=== PATIENT | female | born 1985 | race Caucasian/White ===

== ENCOUNTER 2019-08-11 08:41 | Outpatient (RCR) | payer OTHER, SELFPAY ==
[2019-08-11 10:18] LABS: Hemoglobin 11.8 g/dL (12.0-15.0)
[2019-08-11 10:34] LABS: Glucose 1 Hour PP 50gm Dose 112 mg/dL
[2019-08-11 11:17] LABS: HIV 1/2 Ab P24 Ag Result Negative (Negative)
[2019-08-11] MEDS: RHO(D) IMMUNE GLOBULIN 300 MCG SYRINGE IM (16:51)
[2019-08-12 07:29] LABS: Rapid Plasma Reagin Non-Reactive (NonReactive)
== END 2019-11-09 23:59 | disposition home or self-care (01) ==
LOC: ANHLAB 08:41
PROVIDERS: Visit Provider Advanced Practice Midwife
DX: Z36.89 Encounter for other specified antenatal screening (principal); Z29.13 Encounter for prophylactic Rho(D) immune globulin; O36.0990 Maternal care for other rhesus isoimmunization, unspecified trimester, not applicable or unspecified; Z3A.00 Weeks of gestation of pregnancy not specified
CPT/HCPCS: 36415; 82947; 85014; 85018; 86592; 86703; 86850; 90384; 96372; G0432; J2790

== ENCOUNTER 2019-09-15 15:20 | Outpatient (RCR) | payer OTHER, SELFPAY ==
[2019-09-15 16:14] VITALS: BP 122/75; PULSE 95
== END 2019-10-20 13:19 | disposition home or self-care (01) ==
LOC: ANHOBOP 15:20
PROVIDERS: Visit Provider Obstetrics & Gynecology
DX: O99.89 Other specified diseases and conditions complicating pregnancy, childbirth and the puerperium (principal); Z87.51 Personal history of pre-term labor; Z3A.33 33 weeks gestation of pregnancy
CPT/HCPCS: 59025

== ENCOUNTER 2019-09-15 15:37 | Outpatient (CLI) | payer OTHER, SELFPAY ==
[2019-09-15] MEDS: BETAMETHASONE SOD PHOS/ACETATE 30 MG/5 ML VIAL 12 MG IM (16:12)
== END 2019-09-15 15:38 | disposition home or self-care (01) ==
PROVIDERS: Visit Provider Obstetrics & Gynecology
DX: Z34.90 Encounter for supervision of normal pregnancy, unspecified, unspecified trimester (principal); Z3A.00 Weeks of gestation of pregnancy not specified
CPT/HCPCS: 96372; J0702

== ENCOUNTER 2019-10-10 09:48 | Outpatient (CLI) | payer OTHER, SELFPAY ==
[2019-10-10 10:11] VITALS: BP 125/90; PULSE 81
[2019-10-10 10:28] LABS: Basophils Percent Auto 0.2 % (0.2-1.2); Eosinophils Percent Auto 0.2 % (0-4.4); Hemoglobin 11.8 g/dL (12.0-15.0); Immature Granulocyte Absolute 0.22 K/mm3 (0.00-0.031); Immature Granulocyte Percent A 1.8 % (0-0.5); Lymphocytes Absolute Auto 1.51 K/mm3 (0.9-3.2); Mean Corpuscular HGB Conc 34.7 g/dl (32-36); Mean Corpuscular Hemoglobin 30.2 pg (26-34); Mean Platelet Volume 9.4 fl (7.4-10.4); Monocytes Absolute Auto 0.7 K/mm3 (0.1-0.6); Monocytes Percent Auto 5.7 % (2.6-8.5); Neutrophils Absolute Auto 10.1 K/mm3 (1.3-6.7); Neutrophils Percent Auto 80.1 % (45.5-73.1); Platelet Count Result 154 k/mm3 (150-375); Red Blood Count 3.91 M/mm3 (4.2-5.4); Red Cell Distribution Width 12.9 % (11.5-14.5); White Blood Count 12.6 K/mm3 (4.5-10.0)
[2019-10-10 10:31] VITALS: BP 124/84; PULSE 81
[2019-10-10 10:35] LABS: Add Urine Microscopic? YES; Appearance Urine Clear (Clear); Bacteria Urine 1+ /hpf; Bilirubin Urine Negative (Negative); Blood Urine Negative (Negative); Color Urine Yellow (Yellow); Glucose Urine UA Negative (Negative); Ketones Urine Negative (Negative); Leukocyte Esterase Ur 1+ LEU/UL (NEGATIVE); Mucus Urine Rare /lpf; Nitrate Urine Negative (Negative); Protein Urine Negative (Negative); RBC Urine 0-2 /hpf (0-2); Squamous Epithelial Cell Urine Occasional /hpf (Few); Urobilinogen Urine Negative mg/dL (<2.0); WBC Urine 0-3 /hpf (0-3)
[2019-10-10 10:41] LABS: Creatinine Urine 61.1 mg/dL; Total Protein Urine Random 14 mg/dL
[2019-10-10 10:43] LABS: Alanine Aminotransferase 22 U/L (4-35); Albumin Level 3.6 g/dL (3.5-5.1); Alkaline Phosphatase 121 U/L (38-126); Aspartate Amino Transferase 24 U/L (14-36); Bilirubin,Total 0.3 mg/dL (0.2-1.3); Blood Urea Nitrogen 6 mg/dL (7-17); Calcium 9.3 mg/dL (8.4-10.2); Carbon Dioxide 23 mmol/L (22-30); Chloride 104 mmol/L (98-107); Estimated Glomerular Filt Rate > 60; Glucose 93 mg/dL (65-105); Potassium 3.6 mmol/L (3.4-5.0); Sodium 137 mmol/L (137-145); Uric Acid 3.3 mg/dL (2.5-7.5)
[2019-10-10 10:46] VITALS: BP 124/85; PULSE 86
[2019-10-10 11:00] VITALS: BP 120/77; PULSE 79
[2019-10-10 11:01] VITALS: BP 120/77; PULSE 79
== END 2019-10-10 11:36 | disposition home or self-care (01) ==
LOC: ANHOBOP 09:53 → ANHOBPP 09:54
PROVIDERS: Advanced Practice Midwife; Visit Provider Obstetrics & Gynecology
DX: O13.9 Gestational [pregnancy-induced] hypertension without significant proteinuria, unspecified trimester (principal)
CPT/HCPCS: 36415; 59025; 80053; 81001; 82570; 84156; 84550; 85025; 87086; 87088; 99199

== ENCOUNTER 2019-10-11 12:45 | Outpatient (CLI) | payer OTHER, SELFPAY ==
[2019-10-11 13:48] VITALS: BMI 33.0
[2019-10-11 15:33] LABS: Total Volume 24 Hour Urine 2700 ml
[2019-10-11 15:35] LABS: Specific Gravity Ur 1.007
[2019-10-11 18:07] LABS: Total Protein Urine 24 Hr 203 MG/DAY (28-141); Total Protein Urine Random 7.5 mg/dL (0.0-11.9)
== END 2019-10-11 12:46 | disposition home or self-care (01) ==
LOC: ANHOBOP 12:49
PROVIDERS: Visit Provider Advanced Practice Midwife
DX: R03.0 Elevated blood-pressure reading, without diagnosis of hypertension (principal)
CPT/HCPCS: 81050; 84156

== ENCOUNTER 2019-10-19 09:25 | Inpatient (IN) | payer OTHER, SELFPAY ==
[2019-10-19] VITALS (83 sets, daily range): BP systolic 103–150; BP diastolic 46–111; PULSE 82–122; RESP 18–20; TEMP 36.5–37.2; O2SAT 88–100; BMI 33.0
--- NOTE | ~2019-10-19 | US_ITS ---
EXAMINATION: US pelvic complete DATE: 10/20/2019 09:00 INDICATION: Retained products of conception. TECHNIQUE: Multiple transabdominal sonographic images of the pelvis were obtained. COMPARISON: None. FINDINGS: The uterus measures 15.8 x 13.0 x 6.2 cm. There is no free fluid in the pelvis. The endometrial compl ex measures 20 mm in thickness in the lower uterine segment without internal vascularity. The ovaries are not visualized. IMPRESSION: 1. Thickened endometrial complex suspicious for retained products of conception. 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 Thickened endometrial complex suspicious for retained products of conception .
--- NOTE | 2019-10-19 10:19 | LDADM ---
This patient, Cori Royal, was admitted to Labor/Delivery/Recovery 106 on 10/19/19 at 09:25 with SROM at 0015 this am. Plans for labor, pain management and were discussed with patient. Patient/family oriented to hospital policies and general routines including ID bracelet, bed and alarms, visiting hours, pain management, procedures, bathroom and other care routines, personal items, smoking policy, room service/diet and guest tray routines, infant security routines, and visiting hours. Patient/Family are encouraged to report perceived risks to care and to ask questions if they do not understand what they are told or what they should do. See OBIX for further documentation.
[2019-10-19 10:31] LABS: Basophils Percent Auto 0.3 % (0.2-1.2); Eosinophils Percent Auto 0.2 % (0-4.4); Hematocrit 32.8 % (37.0-47.0); Hemoglobin 11.6 g/dL (12.0-15.0); Immature Granulocyte Absolute 0.24 K/mm3 (0.00-0.031); Immature Granulocyte Percent A 1.6 % (0-0.5); Lymphocytes Absolute Auto 1.68 K/mm3 (0.9-3.2); Lymphocytes Percent Auto 11.4 % (18.3-44.2); Mean Corpuscular HGB Conc 35.4 g/dl (32-36); Mean Corpuscular Hemoglobin 30.6 pg (26-34); Mean Corpuscular Volume 86.5 fl (80-100); Mean Platelet Volume 9.7 fl (7.4-10.4); Monocytes Absolute Auto 0.8 K/mm3 (0.1-0.6); Monocytes Percent Auto 5.3 % (2.6-8.5); Neutrophils Absolute Auto 11.9 K/mm3 (1.3-6.7); Neutrophils Percent Auto 81.2 % (45.5-73.1); Platelet Count Result 158 k/mm3 (150-375); Red Blood Count 3.79 M/mm3 (4.2-5.4); Red Cell Distribution Width 13.2 % (11.5-14.5); White Blood Count 14.7 K/mm3 (4.5-10.0)
[2019-10-19 10:44] LABS: Alanine Aminotransferase 21 U/L (4-35); Albumin Level 3.6 g/dL (3.5-5.1); Alkaline Phosphatase 145 U/L (38-126); Aspartate Amino Transferase 25 U/L (14-36); Bilirubin,Total 0.4 mg/dL (0.2-1.3); Blood Urea Nitrogen 7 mg/dL (7-17); Calcium 8.8 mg/dL (8.4-10.2); Carbon Dioxide 20 mmol/L (22-30); Chloride 104 mmol/L (98-107); Estimated Glomerular Filt Rate > 60; Glucose 86 mg/dL (65-105); Potassium 3.6 mmol/L (3.4-5.0); Sodium 135 mmol/L (137-145); Uric Acid 3.5 mg/dL (2.5-7.5)
[2019-10-19] MEDS: LACTATED RINGERS 1,000 ML 125 ML IV CONT ×2 (10:51→17:31)
--- NOTE | 2019-10-19 13:20 | WPDANESEPP ---
Anes - Eval Pre Procedure Procedure: Labor Epidural Date/Time: 10/19/19 13:20 Pre Op Diagnosis: leaking Patient Data Age: 34 Gender: F Height: 1.57 m Weight: 82 kg Last Vital Signs Temp 37.1 C 10/19/19 13:03 Pulse 95 10/19/19 13:02 Resp 18 10/19/19 09:45 BP 128/87 10/19/19 13:02 Allergies Allergy/AdvReac Type Severity Reaction Status Date / Time milk AdvReac Diarrhea Verified 10/09/19 15:26 Home Medications Medication Instructions Recorded Confirmed Type PNV cmb#95-ferrous fumarate-FA 1 tablet PO DAILY 10/09/19 10/19/19 History [] Vitamin D3 1 cap PO DAILY 10/19/19 10/19/19 History Laboratory Tests 10/19/19 10/19/19 10/19/19 10:23 10:23 10:23 WBC 14.7 K/mm3 H K/mm3 (4.5-10.0) RBC 3.79 M/mm3 L M/mm3 (4.2-5.4) Hgb 11.6 g/dL L g/dL (12.0-15.0) Hct 32.8 % L % (37.0-47.0) MCV 86.5 fl fl (80-100) MCH 30.6 pg pg (26-34) MCHC 35.4 g/dl g/dl (32-36) RDW 13.2 % % (11.5-14.5) Plt Count 158 k/mm3 k/mm3 (150-375) MPV 9.7 fl fl (7.4-10.4) Immature Gran % (Auto) 1.6 % H % (0-0.5) Neut % (Auto) 81.2 % H % (45.5-73.1) Lymph % (Auto) 11.4 % L % (18.3-44.2) [place] % (Auto) 5.3 % % (2.6-8.5) Eos % (Auto) 0.2 % % (0-4.4) Baso % (Auto) 0.3 % % (0.2-1.2) Lymph # (Auto) 1.68 K/mm3 K/mm3 (0.9-3.2) [place] # (Auto) 0.8 K/mm3 H K/mm3 (0.1-0.6) Eos # (Auto) 0.0 K/mm3 K/mm3 (0-0.3) Baso # (Auto) 0.0 K/mm3 K/mm3 (0.0-0.1) Abs Immat Gran (auto) 0.24 K/mm3 H K/mm3 (0.00-0.031) Absolute Neuts (auto) 11.9 K/mm3 H K/mm3 (1.3-6.7) Absolute Nucleated RBC 0.0 K/mm3 K/mm3 (0.0-0.012) Nucleated RBC % 0.0 % % (0.0-0.2) Sodium Potassium Chloride Carbon Dioxide BUN Creatinine Estim Creat Clear Calc Estimated GFR Glucose Uric Acid Calcium Total Bilirubin AST ALT Alkaline Phosphatase Total Protein Albumin RPR Pending Blood Type O Negative Antibody Screen Negative 10/19/19 10:23 WBC RBC Hgb Hct MCV MCH MCHC RDW Plt Count MPV Immature Gran % (Auto) Neut % (Auto) Lymph % (Auto) [place] % (Auto) Eos % (Auto) Baso % (Auto) Lymph # (Auto) [place] # (Auto) Eos # (Auto) Baso # (Auto) Abs Immat Gran (auto) Absolute Neuts (auto) Absolute Nucleated RBC Nucleated RBC % Sodium 135 mmol/L L mmol/L (137-145) Potassium 3.6 mmol/L mmol/L (3.4-5.0) Chloride 104 mmol/L mmol/L (98-107) Carbon Dioxide 20 mmol/L L mmol/L (22-30) BUN 7 mg/dL mg/dL (7-17) Creatinine 0.60 mg/dL L mg/dL (0.7-1.0) Estim Creat Clear Calc Not Reportable Estimated GFR > 60 (59 - ) Glucose 86 mg/dL mg/dL (65-105) Uric Acid 3.5 mg/dL mg/dL (2.5-7.5) Calcium 8.8 mg/dL mg/dL (8.4-10.2) Total Bilirubin 0.4 mg/dL mg/dL (0.2-1.3) AST 25 U/L U/L (14-36) ALT 21 U/L U/L (4-35) Alkaline Phosphatase 145 U/L H U/L (38-126) Total Protein 7.0 g/dL g/dL (6.3-8.2) Albumin 3.6 g/dL g/dL (3.5-5.1) RPR Blood Type Antibody Screen Patient hx anesthesia problems: none Family hx anesthesia problems: none PMFSH Family History Family History Father Pancreatic cancer Sibling Cervical cancer Mother Hypertension Social History Social History Smoking status: Never smoker
[2019-10-19] MEDS: AMPICILLIN 2 GM/NS 100 ML 2 GM/100 ML BAG IVPB (18:14)
[2019-10-19] MEDS: METHYLERGONOVINE MALEATE 0.2 MG/ML VIAL (23:28)
--- NOTE | 2019-10-19 23:36 | PM.OBPRVD ---
OB - Delivery Note Procedure Delivery date: 10/19/19 Procedure: Intrapartal events: Prolonged Labor > 20 hours Induction method: none Delivery augmentation: pitocin Delivery monitor: external FHT and internal FHT Route of delivery: Episiotomy description: Midline (second degree) Delivery repair: vicryl (2-0) Specimen: Yes Estimated blood loss (mL): 385 Anesthesia type: Local Disposition: floor Baby Date of : 10/19/19 Time of : 23:06 Weeks of gestation at delivery: 37 Infant gender: Female Weight (pounds): 6 Weight (ounces): 14 presentation: vertex position: Left Occiput Anterior Placenta delivery description: Manual Removal and Uterine Exploration score one minute: 8 score five minutes: 9 Narrative: Cord avulsed with very gentle traction. Placenta manually removed in one large piece but torn. Manual exploration did not reveal any pieces of placenta inside uterus. bedside ultrasound showed homogenous endometrium about 1 cm thick
--- NOTE | 2019-10-19 23:44 | WPDOBADMIT ---
Obstetrics - Admit Note Admission Note: record reviewed. No pertinent additions to the history and/or any subsequent changes in the physical findings that are not consistent with the expected course of the were found. Additions to the history and/or subsequent changes in the physical findings follow. G1 at 37+6 came in with c/o leaking fluid since 14 this morning was found to have SROM. She was admitted for augmentation of labor. GBS negative
[2019-10-20] VITALS (17 sets, daily range): BP systolic 99–138; BP diastolic 72–88; PULSE 84–115; RESP 16–25; TEMP 36.1–37.7; O2SAT 97–100
[2019-10-20] MEDS: ceFAZolin 2 GM/D5W 50 ML 2 GM/50 ML BAG IVPB (00:19)
--- NOTE | 2019-10-20 02:38 | OBPPTRN ---
Patient transferred to post room #282 via wheelchair. Support person present. Oriented to unit, room, information board, rooming in, admission packet and security measures. Patient verbalizes understanding.
[2019-10-20 05:50] LABS: Hematocrit 29.7 % (37.0-47.0); Hemoglobin 10.5 g/dL (12.0-15.0)
--- NOTE | 2019-10-20 07:31 | P.PNOB_ITS ---
OB - PN: Subj Subjective Date/time seen: 10/20/19 07:31 Patient comments: no complaints, pain well controlled and other (Lochia similar to menses) [place] baby status: doing well OB - PN: Obj Data Labs CBC & Chem 7: 10/20/19 05:06 10/19/19 10:23 Labs: Laboratory Results - last 24 hr 10/19/19 10/19/19 10/19/19 10:23 10:23 10:23 WBC 14.7 H RBC 3.79 L Hgb 11.6 L Hct 32.8 L MCV 86.5 MCH 30.6 MCHC 35.4 RDW 13.2 Plt Count 158 MPV 9.7 Immature Gran % (Auto) 1.6 H Neut % (Auto) 81.2 H Lymph % (Auto) 11.4 L [place] % (Auto) 5.3 Eos % (Auto) 0.2 Baso % (Auto) 0.3 Lymph # (Auto) 1.68 [place] # (Auto) 0.8 H Eos # (Auto) 0.0 Baso # (Auto) 0.0 Abs Immat Gran (auto) 0.24 H Absolute Neuts (auto) 11.9 H Absolute Nucleated RBC 0.0 Nucleated RBC % 0.0 Sodium 135 L Potassium 3.6 Chloride 104 Carbon Dioxide 20 L BUN 7 Creatinine 0.60 L Estim Creat Clear Calc Not Reportable Estimated GFR > 60 Glucose 86 Uric Acid 3.5 Calcium 8.8 Total Bilirubin 0.4 AST 25 ALT 21 Alkaline Phosphatase 145 H Total Protein 7.0 Albumin 3.6 Blood Type O Negative Antibody Screen Negative 10/20/19 05:06 WBC RBC Hgb 10.5 L Hct 29.7 L MCV MCH MCHC RDW Plt Count MPV Immature Gran % (Auto) Neut % (Auto) Lymph % (Auto) [place] % (Auto) Eos % (Auto) Baso % (Auto) Lymph # (Auto) [place] # (Auto) Eos # (Auto) Baso # (Auto) Abs Immat Gran (auto) Absolute Neuts (auto) Absolute Nucleated RBC Nucleated RBC % Sodium Potassium Chloride Carbon Dioxide BUN Creatinine Estim Creat Clear Calc Estimated GFR Glucose Uric Acid Calcium Total Bilirubin AST ALT Alkaline Phosphatase Total Protein Albumin Blood Type Antibody Screen OB - PN A/P Plan day: 1 (s/p vaginal delivery, doing well) Plan: routine care Comments: Manual removal of placenta without epidural, so exploration afterwards was not thorough due to patient intolerance. Lochia similar to menses. Check ultrasound to rule out retained products of conception Time Spent With Patient Time: Total time spent is greater than 50% in coordination of care (as documented) at patient's floor/unit and/or counseling patient: Exam Const: General: no acute distress GI: Inspection: other (Fundus firm and nontender at umbilicus) GI Palp: Yes Soft to palpation and No Tenderness to palpation present (GI) Extrem: General: no edema
[2019-10-20] MEDS: MULTIVIT/MIN/PREN/FOL AC/IRON TABLET 1 TAB PO (08:42)
[2019-10-20] MEDS: DOCUSATE SODIUM 100 MG CAPSULE PO (08:42)
--- NOTE | 2019-10-20 09:19 | PC.NURSE ---
0805 pt to Radiology per wheelchair for pelvic ultrasound. 0830 Pt returned to her room per wheelchair, ultrasound completed.
[2019-10-20 10:49] LABS: Rapid Plasma Reagin Non-Reactive (NonReactive)
--- NOTE | 2019-10-20 13:04 | PC.NURSE ---
2168 Pt made aware of 's order for her to go for a D&C this afternoon; made NPO. Pre-op instructions given. Per Viola in Pre-op, consent to be signed in Pre-op.
--- NOTE | 2019-10-20 13:08 | PC.NURSE ---
1307 To Surgery per stretcher.
[2019-10-20] MEDS: LACTATED RINGERS 1,000 ML 30 ML IV CONT ×2 (13:30→15:16)
--- NOTE | 2019-10-20 13:38 | WPDANESEPPF ---
Anes - Initial Pre Proc Eval Procedure: Operation Date: 10/20/19 14:30 Proposed Procedures p Suction D&C - Terri Gallardo MD Date/Time: 10/20/19 13:38 Surgeon: Terri Gallardo MD Pre Op Diagnosis: leaking Patient Data Age: 34 Gender: F Height: 1.57 m Weight: 82 kg Last Vital Signs Temp 36.8 C 10/20/19 12:45 Pulse 105 H 10/20/19 12:45 Resp 16 10/20/19 12:45 BP 124/85 10/20/19 12:45 Pulse Ox 99 10/20/19 12:45 Allergies Allergy/AdvReac Type Severity Reaction Status Date / Time milk AdvReac Diarrhea Verified 10/09/19 15:26 Home Medications Medication Instructions Recorded Confirmed Type PNV cmb#95-ferrous fumarate-FA 1 tablet PO DAILY 10/09/19 10/19/19 History [] Vitamin D3 1 cap PO DAILY 10/19/19 10/19/19 History Laboratory Tests 10/19/19 10/20/19 10:23 05:06 Hgb 10.5 g/dL L g/dL (12.0-15.0) Hct 29.7 % L % (37.0-47.0) RPR Non-reactive (NonReactive) Patient hx anesthesia problems: none Family hx anesthesia problems: none PMFSH Family History Family History Father Pancreatic cancer Sibling Cervical cancer Mother Hypertension Social History Social History Smoking status: Never smoker Second hand tobacco smoke exposure: No Substance use: never Gender identity (if verbalized by the patient): Female Spiritual care concerns: No Anes - Eval Final PreProcedure Day of Procedure 10/20/19 13:38 Patient weight: obese Heart: regular rate and rhythm Lungs: clear to auscultation and normal air movement Airway: Mallampati scale class II Neurological: alert and oriented Last oral intake: 4 hours (biscuits and gravy 0930) ASA classification: II Emergent: yes Anesthetic plan: proceed Anesthesia type and monitoring: general ETT and standard monitoring Informed Consent: The patient's anesthetic plan and its attendant risks and benefits were discussed with the patient/family/POA. Questions were solicited and answers provided to the satisfaction of the patient/family/POA.
[2019-10-20] MEDS: FAMOTIDINE 20 MG/2 ML VIAL IV PUSH (13:43)
--- NOTE | 2019-10-20 14:13 | PM.IMHP ---
H&P: HPI History of Present Illness Chief complaint: leaking Narrative: Cori Royal is a 34 year old female who had 10/19/2019 complicated by manual removal of placenta. Ultrasound this am shows retained placenta so she is recommended to proceed with D&C. Lochia similar to menses Review of Systems Review of Systems: All systems reviewed & are unremarkable except as noted in HPI and below PMFSH Family History Family History Father Pancreatic cancer Sibling Cervical cancer Mother Hypertension Social History Social History Smoking status: Never smoker Second hand tobacco smoke exposure: No Substance use: never Gender identity (if verbalized by the patient): Female Spiritual care concerns: No Meds Home Medications and Allergies Home Medications Medication Instructions Recorded Confirmed Type PNV cmb#95-ferrous fumarate-FA 1 tablet PO DAILY 10/09/19 10/19/19 History [] Vitamin D3 1 cap PO DAILY 10/19/19 10/19/19 History Allergies Allergy/AdvReac Type Severity Reaction Status Date / Time milk AdvReac Diarrhea Verified 10/09/19 15:26 Vital Signs Vital Signs - 24 hr 10/19/19 14:31 10/19/19 15:00 10/19/19 15:01 Temperature 37.1 C Pulse Rate 86 87 Respiratory Rate Blood Pressure 114/67 117/74 Pulse Oximetry 10/19/19 15:31 10/19/19 16:01 10/19/19 16:02 Temperature 36.5 C Pulse Rate 93 93 Respiratory Rate Blood Pressure 126/79 123/76 Pulse Oximetry 10/19/19 16:17 10/19/19 16:31 10/19/19 16:50 Temperature Pulse Rate 98 102 H 95 Respiratory Rate Blood Pressure 124/81 120/85 121/90 Pulse Oximetry 10/19/19 17:01 10/19/19 17:16 10/19/19 17:31 Temperature 37.2 C Pulse Rate 102 H 92 87 Respiratory Rate 20 Blood Pressure 136/95 H 124/89 118/74 Pulse Oximetry 10/19/19 17:34 10/19/19 17:39 10/19/19 17:44 Temperature Pulse Rate Respiratory Rate Blood Pressure Pulse Oximetry 93 99 99 10/19/19 17:46 10/19/19 17:49 10/19/19 17:54 Temperature Pulse Rate 82 Respiratory Rate Blood Pressure 117/58 L Pulse Oximetry 99 97 10/19/19 17:59 10/19/19 18:00 10/19/19 18:01 Temperature 37.2 C Pulse Rate 84 Respiratory Rate Blood Pressure 118/71 Pulse Oximetry 100 10/19/19 18:04 10/19/19 18:09 10/19/19 18:14 Temperature Pulse Rate Respiratory Rate Blood Pressure Pulse Oximetry 100 100 100 10/19/19 18:19 10/19/19 18:24 10/19/19 18:29 Temperature Pulse Rate Respiratory Rate Blood Pressure Pulse Oximetry 100 99 99 10/19/19 18:31 10/19/19 18:34 10/19/19 18:37 Temperature Pulse Rate 87 Respiratory Rate Blood Pressure 119/70 Pulse Oximetry 100 88 L 10/19/19 18:38 10/19/19 18:39 10/19/19 18:40 Temperature Pulse Rate Respiratory Rate Blood Pressure Pulse Oximetry 93 100 100 10/19/19 19:00 10/19/19 19:01 10/19/19 19:31 Temperature 36.9 C Pulse Rate 94 87 Respiratory Rate Blood Pressure 120/68 134/80 Pulse Oximetry 10/19/19 19:51 10/19/19 19:56 10/19/19 20:01 Temperature Pulse Rate Respiratory Rate Blood Pressure Pulse Oximetry 100 100 100 10/19/19 20:06 10/19/19 20:11 10/19/19 20:15 Temperature Pulse Rate 91 Respiratory Rate Blood Pressure 103/46 L Pulse Oximetry 100 100 10/19/19 20:16 10/19/19 20:21 10/19/19 20:26 Temperature Pulse Rate Respiratory Rate Blood Pressure Pulse Oximetry 100 100 100 10/19/19 20:28 10/19/19 20:31 10/19/19 20:36 Temperature Pulse Rate 95 95 Respiratory Rate Blood Pressure 110/81 119/80 Pulse Oximetry 100 99 10/19/19 20:41 10/19/19 20:46 10/19/19 20:51 Temperature Pulse Rate 94 Respiratory Rate Blood Pressure 129/77 Pulse Oximetry 98 99 99 10/19/19 20:56 10/19/19
--- NOTE | 2019-10-20 14:18 | WPDHPUPDATE1 ---
History and Physical Update Update Date/Time: 10/20/19 14:18 History and Physical has been reviewed, including an updated exam of the patient. There are NO changes in the patient's condition. Risks, benefits, and alternatives have been discussed and questions answered. Patient agrees to proceed with procedure.
--- NOTE | 2019-10-20 15:13 | PM.OP ---
Procedure Note - Brief Procedure Note - Brief Date of procedure: 10/20/19 Pre-op diagnosis: leaking retained placenta Post-op diagnosis: other (stretching of episiotomy site sutures) Procedure performed: suction D&C, revision of episiotomy repair Anesthesia: MAC Surgeon: Terri Gallardo MD Estimated blood loss (mL): 600 Drains: No Packing: No Pathology: yes Complications: No immediate complications Condition: stable Disposition: PACU Findings: Moderate amounts POCs. Sutures stretched and episiotomy site slightly, now revised
--- NOTE | 2019-10-20 15:59 | OP_ITS ---
DATE OF PROCEDURE: 10/20/2019 PREOPERATIVE DIAGNOSIS: Retained placenta. POSTOPERATIVE DIAGNOSIS: Retained placenta and stretching of the episiotomy site sutures. PROCEDURE PERFORMED: Suction dilation and curettage in revision of episiotomy site repair. ANESTHESIA: Conscious sedation. ESTIMATED BLOOD LOSS: 600 mL. COMPLICATIONS: None. FINDINGS: Moderate amounts of products of conception and stretching and slight separation of episiotomy site. INDICATIONS: A 34-year-old G1, P1, who had a vaginal delivery at around 11:00 p.m. on October 18. She had manual removal of the placenta, which was thought to be removed in its entirety, but an ultrasound was ordered for this morning, which did show retained placental tissue. She was recommended to proceed with D and C DESCRIPTION OF PROCEDURE: For the procedure, she was taken to the operating room, where she was sedated and placed in the dorsal lithotomy position. A speculum was placed in the vagina and the anterior lip of the cervix was grasped with an Allis clamp. The cervix easily dilated up to a #14 Hegar dilator. A #14 curved suction curette was placed and the uterine contents were evacuated with moderate amounts of products of conception noted. She did have an increased amount of bleeding, which did respond very quickly to Pitocin and bleeding was minimal at the end of the case and when the speculum was removed. It was noted that her episiotomy site was slightly with the sutures stretched, so the existing sutures were cut and removed and the episiotomy site was repaired in standard fashion with 2-0 Vicryl in a running fashion. She tolerated the procedure well. Sponge, lap, needle, and instrument counts were correct x2 and she was taken to the recovery room in stable condition. D I MT: Abdi
--- NOTE | 2019-10-20 19:06 | PC.NURSE ---
1555 pt returned from Recovery room per stretcher. VSS and assessment WNL.
--- NOTE | 2019-10-20 19:31 | PC.NURSE ---
1600 IV 1000cc LR hung; pt able to start po fluids quickly on return to her room. 1845 IV saline locked; pt had 327cc infused; pt eating and tolerated po fluids.
[2019-10-21 00:30] VITALS: BP 117/73; PULSE 85; RESP 16; TEMP 36.8; O2SAT 99
[2019-10-21 05:39] LABS: Hematocrit 23.2 % (37.0-47.0)
--- NOTE | 2019-10-21 07:30 | PC.NURSE ---
PT introductions made and plan of care discussed per post , pain management, breast/bottle feeding, daily care activities and pending discharge to home. PT verbalized understanding of such care.
[2019-10-21 07:35] VITALS: BP 99/68; PULSE 97; RESP 16; TEMP 36.6; O2SAT 100
--- NOTE | 2019-10-21 07:40 | PM.OBPNVD ---
OB - PN: Subj Subjective Date/time seen: 10/21/19 07:40 Patient comments: no complaints, pain well controlled and other (Lochia similar to menses) [place] baby status: doing well Narrative: No CP, SOB, dizziness. 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 Thickened endometrial complex suspicious for retained products of conception. OB - PN A/P Plan day: 2 (s/p vaginal delivery, doing well) Plan: routine care, discharge home and other (Follow up in office in 1 week due to postop s/p D&C) Time Spent With Patient Time: Total time spent is greater than 50% in coordination of care (as documented) at patient's floor/unit and/or counseling patient: Time with patient: less than 15 minutes Review of Systems Review of Systems: All systems reviewed & are unremarkable except as noted in HPI and below Exam Const: General: no acute distress GI: Inspection: other (Fundus firm and nontender below umbilicus) GI Palp: Yes Soft to palpation and No Tenderness to palpation present (GI) Extrem: General: no edema
--- NOTE | 2019-10-21 07:42 | WPDANESPN ---
Anes - Prog Note Post-Op Date/Time: 10/21/19 07:42 Cardiovascular status: normal Respiratory status: normal Airway patency: baseline Mental status: baseline Post-Op hydration status: normal Vital Signs: Last Vital Signs Temp 36.8 C 10/21/19 00:30 Pulse 85 10/21/19 00:30 Resp 16 10/21/19 00:30 BP 117/73 10/21/19 00:30 Pulse Ox 99 10/21/19 00:30 Laboratory Tests 10/21/19 04:55 10/19/19 10:23 10/19/19 10/21/19 10:23 04:55 Hgb 8.0 L Hct 23.2 L RPR Non-reactive Post-procedural complaints: none Patient Feedback: Patient satisfied with anesthetic care.
--- NOTE | 2019-10-21 07:42 | PM.OBDSVD ---
DS: Diagnosis Admitting Diagnosis Admitting Diagnosis: Retained placenta without hemorrhage OB - DS: Summary OB Procedures : None OB Procedures Intrapartum: Spontaneous Vag Delivery, Uterine exploration and Retained placenta OB Procedures: : Curettage Peripartum Data Procedures: Procedures Operation Date: 10/20/19 14:30 Actual Procedures Side Surgeon p Suction D&C WITH REVISION OF EPISIOTOMY REPAIR Terri Gallardo MD Time Spent with Patient Time attestation: Total time spent providing and/or coordinating discharge services: DS: Data Data Completed and Pending Pending studies at discharge: Pending at discharge 10/20/19 02:36 Surgical [PTH] Routine 10/20/19 14:46 Surgical [PTH] Routine Labs on day of discharge: Labs from last 24 hours 10/21/19 10/19/19 04:55 10:23 Hgb 8.0 L Hct 23.2 L RPR Non-reactive Discharge Plan Discharge Attending physician on discharge: Terri Gallardo Discharging Clinician: Terri Gallardo Patient Disposition: Home, Self-Care Activity: may shower and pelvic rest Diet: regular Patient Instructions: Antibiotic Form Stand Alone Forms: General Discharge Information Follow-up/Referrals: Terri Gallardo MD [Physician] - 1 Week Discharge Medications: New ibuprofen 600 mg Tablet 600 mg PO Q6H PRN (Reason: Cramping) Qty: 60 RF: 0 Continued PNV cmb#95-ferrous fumarate-FA [] 28 mg iron- 800 mcg Tablet 1 tablet PO DAILY RF: 0 Vitamin D3 1 cap PO DAILY RF: 0 Date of admission: 10/19/19 09:25 Primary Care Provider: UNKNOWN,DOCTOR Admitting Provider: Terri Gallardo Attending physician on admission: Terri Gallardo
[2019-10-21 09:30] VITALS: PULSE 97; RESP 16; O2SAT 100
[2019-10-21] MEDS: DOCUSATE SODIUM 100 MG CAPSULE PO (10:10)
[2019-10-21] MEDS: POLYSACCHARIDE IRON COMPLEX 150 MG CAPSULE PO (10:10)
[2019-10-21] MEDS: MULTIVIT/MIN/PREN/FOL AC/IRON TABLET 1 TAB PO (10:10)
--- NOTE | 2019-10-21 13:30 | PC.NURSE ---
PT received discharge instructions per protocol and verbalized understanding of such care.
--- NOTE | 2019-10-21 14:02 | PC.NURSE ---
PT discharged to home ambulatory accompanied by spouse and to waiting car. Follow up appts confirmed
--- NOTE | 2019-10-21 14:50 | PC.NURSE ---
Addendum entered by Jadon Franz RN 10/21/19 14:51: change time to 1330 Original Note: Patient viewed the discharge video Mother & Baby Care, The First Two Weeks . Patient was given the opportunity and encouraged to ask questions. Patient verbalized understanding of information shared and has been given the mother/baby guide for home reference.
[2019-10-22 10:47] VITALS: BP 117/83; PULSE 91; RESP 20; TEMP 36.9
== END 2019-10-21 14:02 | disposition home or self-care (01) | DRG 798 ==
LOC: ANHLDR 09:56 → ANHOB2 10-20 02:21
PROVIDERS: Admitting Provider Obstetrics & Gynecology; Visit Provider Obstetrics & Gynecology
PROC: 10D17ZZ Extraction of Products of Conception, Retained, Via Natural or Artificial Opening (ICD-10-PCS; principal; 2019-10-20 14:30)
DX: O42.02 Full-term premature rupture of membranes, onset of labor within 24 hours of rupture (principal); Z37.0 Single live birth; Z3A.37 37 weeks gestation of pregnancy; O13.4 Gestational [pregnancy-induced] hypertension without significant proteinuria, complicating childbirth; O99.214 Obesity complicating childbirth; E66.9 Obesity, unspecified; O73.0 Retained placenta without hemorrhage
CPT/HCPCS: 36415; 76856; 80053; 84112; 84550; 85014; 85018; 85025; 86592; 86850; 86900; 86901; 88305; 88307; A9270; J0290; J0330; J0690; J1100; J2210; J2250; J2405; J2590; J2704; J3010; J7120

== ENCOUNTER 2019-10-31 11:14 | Outpatient (RCR) | payer OTHER, SELFPAY ==
--- NOTE | 2019-10-31 14:01 | PC.NURSE ---
IN 1010 OUT 1100 HISTORY: Pt. delivered at [facility] at 37 6/7weeks. Infant had no complications after delivery. Mother had complications after delivery, of retained placenta with a large EBL. is now 12 days old. Infant appears to be well cared for. has been seen by ICP as scheduled. last seen by ICP on 10/27/12. Mother reports: She has been using the nipple shield within the first few feedings and is unable to latch without. Mother was discharged with a feeding plan to supplement 20mls increasing as infant's needs increase after each feeding and then pump. Mother was up to 1 oz and is now at 2 oz after ICP visit for slow weight gain. Mother is pumping regularly and is pumping 5mls total each session. Mother wishes: To increase milk supply and not need to supplement after feedings. Currently at 6 wets per day and 1-2 yellow seedy stools per day. weight: 6#14 Last Weight: 6#6 Pre feeding weight: 3067 Post feeding weight: 3073 OBSERVATION: Mother is able to latch correctly using the nipple shield. Mother uses cross cradle positioning/alignment, holding breast and guided asymmetrical latch on. was able to latch correctly. Reviewed signs of a correct latch, effective nursing and suck swallow ratio. Infant nursed eagerly, with steady draws and frequent swallowing noted for 2-3 minutes. began to slow with less swallowing noted. Suggested breast compressions to assist with milk flow and keep nursing with long draws. responded well for a few minutes, then again, began to slow and fall asleep. Mother states this is a typical feeding. Infant weighed after 15 minutes at the breast of stimulating to keep awake and nursing. 5g increase noted in feeding. Discussed low milk supply may have been impacted by retained placenta and large blood loss after delivery. Reviewed milk supply may be delayed and may increase but may not increase to exclusive levels. Mother is very tearful, suggested to use all attempts to increase supply for the next few days and re-evaluate next Sunday for a possible change in feeding plan. Suggested mother put to each breast per feeding for 10 minutes for additional stimulation of nursing, then supplement as much as infant desires and pump 10-15 minutes. FOB will be home for the next few days to assist mother with plan. Assessed mother pumping and her Spectra 2, double electric pump. Mother's pump is working correctly and is pumping with the correct flange size. Suggested a minute of self expression on each breast after pumping if she feels she is able. PLAN: Mother will follow above feeding plan using techniques for deep latch, allowing to on both breasts each feeding. . Mother will call with further questions or concerns. Follow up phone call scheduled for Sunday.
== END 2020-01-29 23:59 | disposition home or self-care (01) ==
LOC: ANHOBOP 11:14
PROVIDERS: Visit Provider Pediatrics
DX: Z39.1 Encounter for care and examination of lactating mother (principal)
CPT/HCPCS: 99212; G0463

== ENCOUNTER 2020-09-24 15:25 | Outpatient (CLI) | payer BC, SELFPAY ==
--- NOTE | ~2020-09-24 | US_ITS ---
EXAMINATION: US OB <= 14 weeks fetus DATE: 09/24/2020 16:04 INDICATION: Gestational dating TECHNIQUE: Real-time transabdominal and transvaginal obstetric ultrasound. FINDINGS: Automated exposure control and iterative reconstruction technique were employed. The uterus measures 11.2 x 5.4 x 6.5 cm . There is an intrauterine gestational sac, with pole i dentified. The crown rump length measures 2.12 cm, which correlates with a estimated gestational age of 8 weeks 5 days. heart tones are identified measuring 171 BPM. There is a 4 cm corpus lute al cyst of the right ovary. Left ovary is unremarkable. IMPRESSION: 1. SL IUP with an EGA of 8 weeks, 5 days (EDC by current ultrasound of 05/01/2021). 2: Corpus luteal cyst of the right ovary measuring 4 cm. 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 [employer] IMPRESSION: 1. SL IUP with an EGA of 8 weeks, 5 days (EDC by current ultrasound of ). 2: Corpus luteal cyst of the right ovary measuring 4 cm.
== END 2020-09-24 15:26 | disposition home or self-care (01) ==
PROVIDERS: PCP Nurse Practitioner Family; Visit Provider Obstetrics & Gynecology
DX: Z78.9 Other specified health status (principal); Z3A.08 8 weeks gestation of pregnancy; O34.81 Maternal care for other abnormalities of pelvic organs, first trimester; N83.11 Corpus luteum cyst of right ovary
CPT/HCPCS: 76801

== ENCOUNTER 2021-02-04 10:37 | Outpatient (CLI) | payer BC, SELFPAY ==
[2021-02-04 11:59] LABS: Basophils Percent Auto 0.3 % (0.2-1.2); Eosinophils Percent Auto 0.4 % (0-4.4); Hematocrit 33.9 % (37.0-47.0); Hemoglobin 11.4 g/dL (12.0-15.0); Immature Granulocyte Absolute 0.15 K/mm3 (0.00-0.031); Immature Granulocyte Percent A 1.4 % (0-0.5); Lymphocytes Absolute Auto 1.05 K/mm3 (0.9-3.2); Lymphocytes Percent Auto 9.7 % (18.3-44.2); Mean Corpuscular HGB Conc 33.6 g/dl (32-36); Mean Corpuscular Hemoglobin 30.6 pg (26-34); Mean Corpuscular Volume 90.9 fl (80-100); Monocytes Absolute Auto 0.4 K/mm3 (0.1-0.6); Neutrophils Absolute Auto 9.2 K/mm3 (1.3-6.7); Neutrophils Percent Auto 84.2 % (45.5-73.1); Platelet Count Result 144 k/mm3 (150-375); Red Blood Count 3.73 M/mm3 (4.2-5.4); Red Cell Distribution Width 13.2 % (11.5-14.5); White Blood Count 10.9 K/mm3 (4.5-10.0)
[2021-02-04 12:08] LABS: Glucose 1 Hour PP 50gm Dose 122 mg/dL
[2021-02-04 12:39] LABS: Thyroid Stimulating Hormone 0.712 uIU/mL (0.465-4.680)
[2021-02-04] MEDS: RHO(D) IMMUNE GLOBULIN 300 MCG/2 ML SYRINGE IM (16:19)
== END 2021-02-04 10:38 | disposition home or self-care (01) ==
LOC: ANHLAB 10:38
PROVIDERS: PCP Nurse Practitioner Family; Visit Provider Obstetrics & Gynecology
DX: Z34.90 Encounter for supervision of normal pregnancy, unspecified, unspecified trimester (principal); E07.9 Disorder of thyroid, unspecified; Z3A.00 Weeks of gestation of pregnancy not specified
CPT/HCPCS: 36415; 82947; 84439; 84443; 85025; 85461; 90384; 96372; J2790

== ENCOUNTER 2021-03-04 15:57 | Outpatient (CLI) | payer BC, SELFPAY ==
[2021-03-04 16:12] LABS: Mean Platelet Volume 9.4 fl (7.4-10.4); Platelet Count Result 145 k/mm3 (150-375)
[2021-03-07 09:52] LABS: Rapid Plasma Reagin Non-Reactive (NonReactive)
[2021-03-08 14:49] LABS: HIV 1 2 Ag Ab 4th Gen w Rflxs Non-reactive (Non-reactive)
== END 2021-03-04 15:58 | disposition home or self-care (01) ==
LOC: ANHLAB 15:59
PROVIDERS: PCP Nurse Practitioner Family; Visit Provider Obstetrics & Gynecology
DX: D69.6 Thrombocytopenia, unspecified (principal); O99.119 Other diseases of the blood and blood-forming organs and certain disorders involving the immune mechanism complicating pregnancy, unspecified trimester; Z3A.00 Weeks of gestation of pregnancy not specified
CPT/HCPCS: 36415; 85049; 86592; 87389

== ENCOUNTER 2021-04-10 13:21 | Observation (INO) | payer BC, SELFPAY ==
[2021-04-10 13:30] VITALS: BMI 34.7
--- NOTE | 2021-04-19 09:51 | PM.OBTRLD ---
OB - Triage/Final Diagnosis Visit Information Comments/Additional reasons for admission: I have assessed the risk for this patient, Cori Royal, and determined that she would benefit from observation care. Final Diagnosis (1) False labor: Code(s): O47.9 - False labor, unspecified Status: Acute
== END 2021-04-10 14:25 | disposition home or self-care (01) ==
PROVIDERS: Admitting Provider Obstetrics & Gynecology; PCP Nurse Practitioner Family; Visit Provider Obstetrics & Gynecology
DX: O47.03 False labor before 37 completed weeks of gestation, third trimester (principal); Z3A.36 36 weeks gestation of pregnancy
CPT/HCPCS: G0378; G0379

== ENCOUNTER 2021-04-18 00:10 | Observation (INO) | payer BC, SELFPAY ==
--- NOTE | ~2021-04-18 | US_ITS ---
EXAMINATION: US OB limited DATE: 04/18/2021 07:56 INDICATION: Leaking amniotic fluid during third trimester TECHNIQUE: Real-time ultrasound of the pelvis was performed. The interpreting radiologist was not pre sent for the study. COMPARISON: None. FINDINGS: There is a single living fetus in vertex presentation. The placenta is fundal/posterior. Fe janett cardiac activity and movement are noted. heart rate is 131 beats per minute (bpm). Th e amniotic fluid index is 23.3 cm normal (normal range: 7.3 cm to 23.9 cm). IMPRESSION: 1. Single living fetus in vertex presentation. 2. Normal amniotic fluid index. 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
[2021-04-18 01:43] VITALS: TEMP 36.4
[2021-04-18 02:07] VITALS: BMI 33.0
--- NOTE | 2021-04-18 02:07 | OBADM ---
This patient, Cori Royal, admitted to the OB room Labor/Delivery/Recovery 106 for observation. Patient/family oriented to hospital policies and general routines including ID bracelet, bed and alarms, visiting hours, pain management, procedures, bathroom and other care routines, personal items, smoking policy, room service/diet, and visiting hours. Patient/Family are encouraged to report perceived risks to care and to ask questions if they do not understand what they are told or what they should do.
[2021-04-18 05:00] VITALS: BP 114/82; PULSE 83
[2021-04-18 05:02] VITALS: BP 111/71; PULSE 78
[2021-04-18 05:03] VITALS: TEMP 36.3
--- NOTE | 2021-04-18 08:02 | PM.OBTRLD ---
OB - Triage/Final Diagnosis Visit Information Comments/Additional reasons for admission: I have assessed the risk for this patient, Cori Royal, and determined that she would benefit from observation care. She was observed for several hours after having faint + [employer]. She had no further leakage of fluid and has MICHAEL 23.3 this morning. We discussed option of staying for observation or induction of labor but no obvious ruptured membranes. She prefers to go home. She agrees to watch closely for increased vaginal discharge, bleeding, regular contractions, or decreased movement and will return immediately if any of those occur. Keep appointment Sunday 04/22. She had repeat MICHAEL scheduled with MFM at 9:00 am today, so we'll call to let them know she had one done this morning already and to cancel that U/S. She and her agree with the plan. Evaluation Vital signs: Vital Signs - 24 hr 04/18/21 01:43 04/18/21 05:00 04/18/21 05:02 Temperature 36.4 C L Pulse Rate 83 78 Blood Pressure 114/82 111/71 04/18/21 05:03 Temperature 36.3 C L Pulse Rate Blood Pressure Final Diagnosis (1) False labor: Code(s): O47.9 - False labor, unspecified Status: Acute
== END 2021-04-18 08:15 | disposition home or self-care (01) ==
PROVIDERS: Admitting Provider Obstetrics & Gynecology; PCP Nurse Practitioner Family; Visit Provider Obstetrics & Gynecology
DX: O47.1 False labor at or after 37 completed weeks of gestation (principal); Z3A.37 37 weeks gestation of pregnancy
CPT/HCPCS: 76815; 84112; G0378; G0379

== ENCOUNTER 2021-04-26 06:26 | Inpatient (IN) | payer BC, SELFPAY ==
[2021-04-26] VITALS (67 sets, daily range): BP systolic 99–167; BP diastolic 39–127; PULSE 80–290; RESP 16; TEMP 36.2–36.8; O2SAT 98–100; BMI 34.8
[2021-04-26 07:14] LABS: Basophils Absolute Auto 0.1 K/mm3 (0.0-0.1); Basophils Percent Auto 0.5 % (0.2-1.2); Eosinophils Absolute Auto 0.1 K/mm3 (0-0.3); Eosinophils Percent Auto 0.6 % (0-4.4); Hematocrit 34.1 % (37.0-47.0); Hemoglobin 11.8 g/dL (12.0-15.0); Immature Granulocyte Absolute 0.11 K/mm3 (0.00-0.031); Immature Granulocyte Percent A 0.9 % (0-0.5); Immature Platelet Fraction Pct 7.4 % (0.9-11.2); Lymphocytes Absolute Auto 2.03 K/mm3 (0.9-3.2); Lymphocytes Percent Auto 17.1 % (18.3-44.2); Mean Corpuscular HGB Conc 34.6 g/dl (32-36); Mean Corpuscular Hemoglobin 30.2 pg (26-34); Mean Corpuscular Volume 87.2 fl (80-100); Mean Platelet Volume 10.9 fl (7.4-10.4); Monocytes Absolute Auto 0.7 K/mm3 (0.1-0.6); Monocytes Percent Auto 6.3 % (2.6-8.5); Neutrophils Absolute Auto 8.8 K/mm3 (1.3-6.7); Neutrophils Percent Auto 74.6 % (45.5-73.1); Platelet Count Result 162 k/mm3 (150-375); Red Blood Count 3.91 M/mm3 (4.2-5.4); Red Cell Distribution Width 13.2 % (11.5-14.5); White Blood Count 11.8 K/mm3 (4.5-10.0)
--- NOTE | 2021-04-26 07:16 | LDADM ---
This patient, Cori Royal, was admitted to Labor/Delivery/Recovery 103 on 04/26/21 at 06:26. Plans for labor, pain management and were discussed with patient. Patient/family oriented to hospital policies and general routines including ID bracelet, bed and alarms, visiting hours, pain management, procedures, bathroom and other care routines, personal items, smoking policy, room service/diet and guest tray routines, security routines, and visiting hours. Patient/Family are encouraged to report perceived risks to care and to ask questions if they do not understand what they are told or what they should do. See OBIX for further documentation.
[2021-04-26] MEDS: LACTATED RINGERS 1,000 ML 125 ML IV CONT ×2 (07:28→13:00)
[2021-04-26] MEDS: OXYTOCIN 30 UNITS/NS 500 ML 30 UNITS/500 ML BAG IV CONT (07:29)
--- NOTE | 2021-04-26 07:53 | WPDOBADMIT ---
Obstetrics - Admit Note Admission Note: record reviewed. No pertinent additions to the history and/or any subsequent changes in the physical findings that are not consistent with the expected course of the were found. Additions to the history and/or subsequent changes in the physical findings follow. at 39+0 for induction of labor. Cervix 5/60/-1. AROM with clear fluid. GBS negative. Continue pitocin. Anticipate .
--- NOTE | 2021-04-26 09:08 | WPDANESEPP ---
Anes - Eval Pre Procedure Procedure: labor epidural Date/Time: 04/26/21 09:08 Pre Op Diagnosis: iol Patient Data Age: 35 Gender: F Height: 1.57 m Weight: 86.36 kg Last Vital Signs Temp 36.3 C L 04/26/21 07:30 Pulse 89 04/26/21 09:01 BP 131/88 04/26/21 09:01 Allergies Allergy/AdvReac Type Severity Reaction Status Date / Time milk AdvReac Mild Diarrhea Verified 04/22/21 08:25 Home Medications Medication Instructions Recorded Confirmed Type docosahexaenoic acid 200 mg capsule 1 mg PO DAILY 09/17/20 04/26/21 History Laboratory Tests 04/26/21 04/26/21 06:49 06:49 WBC 11.8 K/mm3 H K/mm3 (4.5-10.0) RBC 3.91 M/mm3 L M/mm3 (4.2-5.4) Hgb 11.8 g/dL L g/dL (12.0-15.0) Hct 34.1 % L % (37.0-47.0) MCV 87.2 fl fl (80-100) MCH 30.2 pg pg (26-34) MCHC 34.6 g/dl g/dl (32-36) RDW 13.2 % % (11.5-14.5) Plt Count 162 k/mm3 k/mm3 (150-375) MPV 10.9 fl H fl (7.4-10.4) Immature Gran % (Auto) 0.9 % H % (0-0.5) Neut % (Auto) 74.6 % H % (45.5-73.1) Lymph % (Auto) 17.1 % L % (18.3-44.2) [place] % (Auto) 6.3 % % (2.6-8.5) Eos % (Auto) 0.6 % % (0-4.4) Baso % (Auto) 0.5 % % (0.2-1.2) Lymph # (Auto) 2.03 K/mm3 K/mm3 (0.9-3.2) [place] # (Auto) 0.7 K/mm3 H K/mm3 (0.1-0.6) Eos # (Auto) 0.1 K/mm3 K/mm3 (0-0.3) Baso # (Auto) 0.1 K/mm3 K/mm3 (0.0-0.1) Abs Immat Gran (auto) 0.11 K/mm3 H K/mm3 (0.00-0.031) Absolute Neuts (auto) 8.8 K/mm3 H K/mm3 (1.3-6.7) Absolute Nucleated RBC 0.0 K/mm3 K/mm3 (0.0-0.012) Nucleated RBC % 0.0 % % (0.0-0.2) % Immature Plt Fraction 7.4 % % (0.9-11.2) RPR Pending Patient hx anesthesia problems: none Family hx anesthesia problems: none [facility] Past Medical History Medical History Vaginal delivery x1 Surgical History Surgical History H/O dilation and curettage retained placenta Family History Family History Father Pancreatic cancer Sibling Cervical cancer Mother Hypertension Grandparent Carcinoma of colon Cerebrovascular accident Social History Social History Smoking status: Never smoker Second hand tobacco smoke exposure: No Alcohol intake: never Substance use: never Gender identity (if verbalized by the patient): Female Spiritual care concerns: No Exam Day of Procedure 04/26/21 09:08 Patient weight: obese Heart: regular rate and rhythm Lungs: normal air movement Airway: Mallampati scale class II Neurological: alert and oriented
[2021-04-26 10:30] LABS: Rapid Plasma Reagin Non-Reactive (NonReactive)
[2021-04-26] MEDS: ONDANSETRON INJ 4 MG/2 ML VIAL IV PUSH (11:41)
[2021-04-26] MEDS: fentaNYL CITRATE INJ (*CRX) 100 MCG/2 ML VIAL IV PUSH (12:57)
[2021-04-26] MEDS: METHYLERGONOVINE MALEATE 0.2 MG/ML VIAL (15:51)
--- NOTE | 2021-04-26 16:00 | P.PCNOB_ITS ---
OB - Delivery Note Procedure Delivery date: 04/26/21 events: Labor Induction and Polyhydramnios Intrapartal events: None Induction method: AROM and per pitocin protocol Delivery monitor: external FHT and external uterine Route of delivery: Laceration Description: Perineal - 2nd Degree Delivery repair: vicryl (2-0) Specimen: Yes Quantitative Blood Loss (ml): 642 Anesthesia type: Epidural Disposition: floor [place] Baby Date of : 04/26/21 Weeks of gestation at delivery: 39 gender: Male Weight (pounds): 8 Weight (ounces): 4 presentation: vertex position: Right Occiput Anterior Placenta delivery description: Manual Removal and Uterine Exploration (no palpable placenta or membranes inside uterine cavity) cord vessel description: 3 Vessels and Clamped/Cut score one minute: 8 score five minutes: 9 Narrative: Bedside ultrasound performed after removal of placenta, endometrial s tripe then with areas up to approximately 1 cm. No obvious placenta visible
[2021-04-26] MEDS: OXYTOCIN 30 UNITS/NS 500 ML 30 UNITS/500 ML BAG 125 UNITS IV CONT (16:16)
[2021-04-27 06:00] LABS: Hemoglobin 8.3 g/dL (12.0-15.0)
[2021-04-27 07:50] VITALS: BP 104/58; PULSE 95; RESP 16; TEMP 36.8; O2SAT 99
--- NOTE | 2021-04-27 08:08 | PM.OBPNVD ---
OB - PN: Subj Subjective Date/time seen: 04/27/21 08:08 Patient comments: no complaints, pain well controlled and other (Lochia similar to menses. No SOB, chest pain, dizziness) baby status: doing well OB - PN: Obj Data Labs CBC & Chem 7: 04/27/21 05:09 Labs: Laboratory Results - last 24 hr 04/26/21 04/26/21 04/27/21 06:49 06:49 05:09 Hgb 8.3 L D Hct 24.0 L RPR Non-reactive Blood Type O Negative Antibody Screen Negative Screen Baby's Blood Type Baby's JOHNY 04/27/21 05:09 Hgb Hct RPR Blood Type O Negative Antibody Screen Negative Screen Positive H Baby's Blood Type O pos Baby's JOHNY Negative OB - PN A/P Assessment and Plan (1) Anemia: Code(s): D64.9 - Anemia, unspecified Status: Acute Assessment and Plan: Asymptomatic, slight tachycardia but improving. Observe closely. Continue PNV + iron daily Plan day: 1 (s/p vaginal delivery, doing well) Plan: routine care Time Spent With Patient Time: Total time spent is greater than 50% in coordination of care (as documented) at patient's floor/unit and/or counseling patient: Exam Const: General: no acute distress GI: Inspection: other (Fundus firm and nontender at umbilicus) GI Palp: Yes Soft to palpation and No Tenderness to palpation present (GI) Extrem: General: no edema
--- NOTE | 2021-04-27 08:34 | WPDANLDPN2 ---
Anes-Prog Note L&D Date/Time: 04/27/21 08:34 Comfortable throughout: labor and delivery Neuraxial method: epidural Epidural/Spinal procedure site: clean & non-tender Neuro status: Neuro function grossly intact. Cardiovascular status: normal Respiratory status: normal Airway patency: baseline Mental status: baseline Post-Op hydration status: normal Vital Signs: Last Vital Signs Temp 36.7 C 04/26/21 19:13 Pulse 97 04/26/21 19:13 Resp 16 04/26/21 19:13 BP 119/79 04/26/21 19:13 Pulse Ox 100 04/26/21 14:39 Pain score (VAS): 3 I/O: Intake & Output 04/26/21 04/27/21 04/27/21 23:59 07:59 15:59 Intake Total 1500 Output Total 683 Balance 817 Post-procedural complaints: none Patient feedback: Patient satisfied with anesthetic care.
[2021-04-27 09:50] VITALS: PULSE 105; RESP 16; O2SAT 97
[2021-04-27] MEDS: DOCUSATE SODIUM 100 MG CAPSULE PO ×2 (09:50→17:15)
[2021-04-27] MEDS: IBUPROFEN 600 MG TABLET PO ×2 (09:50→17:15)
[2021-04-27] MEDS: POLYSACCHARIDE IRON COMPLEX 150 MG CAPSULE PO ×2 (09:50→17:15)
[2021-04-27] MEDS: MULTIVIT/MIN/PREN/FOL AC/IRON TABLET 1 TAB PO (09:50)
[2021-04-27 11:51] VITALS: BP 104/74; PULSE 105; RESP 16; TEMP 36.6; O2SAT 97
[2021-04-27 12:30] VITALS: PULSE 105; RESP 16; O2SAT 97
[2021-04-27] MEDS: RHO(D) IMMUNE GLOBULIN 300 MCG/2 ML SYRINGE IM (14:26)
[2021-04-27] MEDS: WITCH HAZEL 40 PADS 1 PAD TOPICAL (17:15)
[2021-04-27] MEDS: BENZOCAINE 20% AER SPR (*SP) 56 GM CAN 1 SPRAY TOPICAL (17:15)
[2021-04-27 20:05] VITALS: BP 107/70; PULSE 94; RESP 16; TEMP 36.6; O2SAT 98
[2021-04-28] MEDS: IBUPROFEN 600 MG TABLET PO ×2 (03:03→09:59)
[2021-04-28 08:00] VITALS: BP 121/86; PULSE 88; RESP 16; TEMP 36.8; O2SAT 100
--- NOTE | 2021-04-28 08:00 | PC.NURSE ---
PT introductions made and plan of care discussed per post , pain management, bottle feeding, daily care activities and pending discharge to home. PT received instructions and education per one to one discussion, mom baby care guide and demonstration. PT and spouse both recipients of such instructions and no barriers to learning identified. PT verbalized understanding of such care.
--- NOTE | 2021-04-28 08:06 | PM.OBPNVD ---
OB - PN: Subj Subjective Date/time seen: 04/28/21 08:06 Patient comments: no complaints, pain well controlled and other (Lochia similar to menses) [place] baby status: doing well OB - PN: Obj Data Labs CBC & Chem 7: 04/27/21 05:09 Labs: Laboratory Results - last 24 hr 04/27/21 05:09 Blood Type O Negative Antibody Screen Negative Screen Positive H Baby's Blood Type O pos Baby's JOHNY Negative KB Hemoglobin Positive Doses of RhIg Required 2 OB - PN A/P Plan day: 2 (s/p vaginal delivery, doing well) Plan: routine care, discharge home and other (Follow up in office in 4 weeks) Time Spent With Patient Time: Total time spent is greater than 50% in coordination of care (as documented) at patient's floor/unit and/or counseling patient: Exam Const: General: no acute distress GI: Inspection: other (Fundus firm and nontender below umbilicus) GI Palp: Yes Soft to palpation and No Tenderness to palpation present (GI) Extrem: General: no edema
--- NOTE | 2021-04-28 08:10 | PM.OBDSVD ---
DS: Admitting Diagnosis Discharge Date 04/28/2021 Admitting Diagnosis induction of labor DS: Discharge Diagnosis Discharge Diagnosis (1) Vaginal delivery: Code(s): O80 - Encounter for full-term uncomplicated delivery Status: Acute OB - DS: Summary OB Procedures : None OB Procedures Intrapartum: Spontaneous Vag Delivery, Uterine exploration and Retained placenta (manual extraction) OB Procedures: : None Peripartum Data Infant Delivery Method: Natural Vaginal Laceration Description: Perineal - 2nd Degree complications: none Status at Discharge Functional status at discharge: independent ambulation Overall status at discharge: patient is progressing back to baseline Time Spent with Patient Time attestation: Total time spent providing and/or coordinating discharge services: Time spent: Less than 30 minutes DS: Data Data Completed and Pending Pending studies at discharge: Pending at discharge 04/26/21 16:17 Surgical [PTH] Routine Labs on day of discharge: Labs from last 24 hours 04/27/21 05:09 Blood Type O Negative Antibody Screen Negative Screen Positive H Baby's Blood Type O pos Baby's JOHNY Negative KB Hemoglobin Positive Doses of RhIg Required 2 Discharge Plan Discharge Attending physician on discharge: Terri Gallardo Discharging Clinician: Terri Gallardo Patient Disposition: Home, Self-Care Activity: may shower and pelvic rest Diet: as tolerated Patient Instructions: Antibiotic Form Stand Alone Forms: General Discharge Information Follow-up/Referrals: Terri Gallardo MD [Physician] - 4 Weeks Discharge Medications: Continued DHA 200 mg capsule 1 mg PO DAILY RF: 0 Date of admission: 04/26/21 06:26 Primary Care Provider: Jordan,Tamika Kyle Admitting Provider: Terri Gallardo Attending physician on admission: Terri Gallardo Condition: Stable
--- NOTE | 2021-04-28 09:00 | PC.NURSE ---
Patient viewed the discharge video Mother & Baby Care, The First Two Weeks . Patient was given the opportunity and encouraged to ask questions. Patient verbalized understanding of information shared and has been given the mother/baby guide for home reference.
[2021-04-28 09:30] VITALS: PULSE 88; RESP 16; O2SAT 100
[2021-04-28] MEDS: DOCUSATE SODIUM 100 MG CAPSULE PO (09:58)
[2021-04-28] MEDS: POLYSACCHARIDE IRON COMPLEX 150 MG CAPSULE PO ×2 (09:58→09:59)
--- NOTE | 2021-04-28 11:49 | PC.NURSE ---
PT discharged to home ambulatory accompanied by spouse and to waiting car. Follow up appts confirmed
[2021-04-29 10:05] VITALS: BP 118/83; PULSE 103; RESP 20; TEMP 37; O2SAT 100
== END 2021-04-28 11:49 | disposition home or self-care (01) | DRG 807 ==
LOC: ANHLDR 06:31 → ANHOB2 18:59
PROVIDERS: Admitting Provider Obstetrics & Gynecology; PCP Nurse Practitioner Family; Visit Provider Obstetrics & Gynecology
DX: O40.3XX0 Polyhydramnios, third trimester, not applicable or unspecified (principal); Z37.0 Single live birth; O70.1 Second degree perineal laceration during delivery; Z3A.39 39 weeks gestation of pregnancy; O73.0 Retained placenta without hemorrhage
CPT/HCPCS: 36415; 85014; 85018; 85025; 85055; 85460; 85461; 86592; 86850; 86900; 86901; 88307; 90384; A9270; J2210; J2405; J2590; J2790; J2795; J3010; J7120

== ENCOUNTER 2024-09-11 12:33 | Emergency (ER) | payer BC, SELFPAY ==
--- NOTE | ~2024-09-11 | CT_ITS ---
CLINICAL INDICATION: Abdominal pain, nausea and diarrhea COMPARISON: None. TECHNIQUE: Multiple contiguous axial images of the abdomen and pelvis were performed following the ad ministration of with 100 mL Omnipaque-350 intravenous contrast The dose-length product (DLP) was 789.07 mGy-cm. Automated exposure control and iterative reconstruction technique were employed. FINDINGS/OBSERVATIONS: Visualized lower thorax: The bilateral lung bases are clear. The heart is of normal size, without pericardial effusion. Small hiatal hernia is present. Liver: The liver enhances homogeneously and is enlarged measuring 19 cm in longitudinal dimension. Gallbladder and biliary system: The gallbladder is distended, and otherwise unremarkable. Pancreas: The pancreas enhances homogeneously without ductal dilatation. Spleen: 16mm well-circumscribed focus of decreased attenuation within the lower pole of the spleen, t oo small to characterize, but statistically a cyst. The remainder of spleen otherwise enhances homogeneously and is enlarged measuring 14 cm in longitudi nal dimension. Kidneys: The bilateral kidneys enhance symmetrically without hydronephrosis or renal calculi. Adrenal glands: Unremarkable. Gastrointestinal tract: Small bowel is fluid-filled and otherwise unremarkable. Sigmoid diverticulosis without surrounding inflammatory change. Appendix: The air-filled appendix is of normal caliber (axial series, images 120 through 125). Vasculature: Unremarkable. Lymph nodes: No pathologically enlarged or morphologically suspicious lymph nodes within the retroperitoneum or at the root of the mesentery. Pelvic structures: The bladder is decompressed, limiting evaluation The uterus is anteverted and anteflexed. 27 mm focus of decreased attenuation within the left hemipelvis, likely a dominant follicle within th e left ovary. Body wall and musculoskeletal: Small fat-containing umbilical hernia. No significant degenerative disease within the lower thoracic or lumbosacral spine. IMPRESSION: Hepatosplenomegaly. Dominant follicle within the left ovary. Splenic (likely) subcentimeter cyst. Fluid-filled small bowel without obstruction. Normal appendix. Normal gallbladder. 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
[2024-09-11 13:06] VITALS: BP 140/86; PULSE 98; RESP 17; TEMP 36.6; O2SAT 100
--- NOTE | 2024-09-11 13:20 | ED_ITS ---
HPI - Abdominal Pain General Chief Complaint: Abdominal Pain Stated Complaint: stomach pain Time Seen by Provider: 09/11/24 13:00 Focused HPI: Patient is a 39-year-old female who presents to the ER with abdominal pain. She reports her pain started a couple days ago. Patient endorses nausea and diarrhea accompanied with the abdominal pain. Patient is on certain when her last menstrual period was as she has irregular periods. She denies any urinary symptoms. Patient denies any medical history related to this ER visit. GENERAL: Well-appearing, well-nourished, and in no acute distress. HEAD: Normocephalic, atraumatic. CHEST: Clear to auscultation. ?No respiratory distress. HEART: Regular rate and rhythm.? NEURO: ?Alert and oriented x3. Patient screened in triage and initial orders placed.? ?Additional care and disposition to be based upon?diagnostic testing and treatment. Related Data Home Medications ?Medication ?Instructions ?Recorded ?Confirmed ?Last Taken ?Type docosahexaenoic acid 200 mg 1 mg PO DAILY 09/17/20 06/22/21 04/17/21 09:00 History capsule ( DHA) Allergies Allergy/AdvReac Type Severity Reaction Status Date / Time milk AdvReac Mild Diarrhea Verified 06/22/21 13:22 PMFSH Past Medical History Medical History Vaginal delivery x2 Surgical History Surgical History H/O dilation and curettage retained placenta Family History Family History Father Pancreatic cancer Sibling Cervical cancer Mother Hypertension Grandparent Carcinoma of colon Cerebrovascular accident Social History Social History Smoking status: Never smoker Second hand tobacco smoke exposure: No Alcohol intake: never Substance use: never Gender identity (if verbalized by the patient): Female Spiritual care concerns: No Course Vital Signs Vital signs: Vital Signs Temperature 36.6 C 09/11/24 13:06 Pulse Rate 98 09/11/24 13:06 Respiratory Rate 17 09/11/24 13:06 Blood Pressure 140/86 09/11/24 13:06 Pulse Oximetry 100 09/11/24 13:06 Oxygen Delivery Room Air 09/11/24 13:06 Temperature 36.6 C 09/11/24 13:06 Pulse Rate 78 09/11/24 19:20 Respiratory Rate 16 09/11/24 19:20 Blood Pressure 111/62 09/11/24 19:20 Pulse Oximetry 98 09/11/24 19:20 Oxygen Delivery Room Air 09/11/24 13:06 MDM - Abdominal Pain Lab Data 09/11/24 14:00 09/11/24 14:00 Labs: Lab Results 09/11/24 09/11/24 Range/Units 14:00 14:50 WBC 11.2 H (4.5-10.0) K/mm3 RBC 4.94 (4.2-5.4) M/mm3 Hgb 14.7 D (12.0-15.0) g/dL Hct 42.4 (37.0-47.0) % MCV 85.8 (80-100) fl MCH 29.8 (26-34) pg MCHC 34.7 (32-36) g/dl RDW 12.7 (11.5-14.5) % Plt Count 217 (150-375) k/mm3 MPV 9.0 (7.4-10.4) fl Immature Gran % (Auto) 0.3 (0-0.5) % Neut % (Auto) 90.0 H (45.5-73.1) % Lymph % (Auto) 4.6 L (18.3-44.2) % [place] % (Auto) 4.2 (2.6-8.5) % Eos % (Auto) 0.6 (0-4.4) % Baso % (Auto) 0.3 (0.2-1.2) % Lymph # (Auto) 0.52 L (0.9-3.2) K/mm3 [place] # (Auto) 0.5 (0.1-0.6) K/mm3 Eos # (Auto) 0.1 (0-0.3) K/mm3 Baso # (Auto) 0.0 (0.0-0.1) K/mm3 Abs Immat Gran (auto) 0.03 (0.00-0.031) K/mm3 Absolute Neuts (auto) 10.1 H (1.3-6.7) K/mm3 Absolute Nucleated RBC 0.000 (0.0-0.012) K/mm3 Nucleated RBC % 0.0 (0.0-0.2) % Platelet Estimate Adequate (Adequate) Anisocytosis 1+ Schistocytes None seen Sodium 139 (137-145) mmol/L Potassium 3.6 (3.4-5.0) mmol/L Chloride 104 (98-107) mmol/L Carbon Dioxide 26 (22-30) mmol/L Anion Gap 9 (4-12) mmol/L BUN 12 D (7-17) mg/dL Creatinine 0.60 L (0.7-1.0) mg/dL Estim Creat Clear Calc 106 ml/min Estimated GFR > 60 (59 - ) Glucose 99 (65-110) mg/dL Calcium 8.9 (8.4-10.2) mg/dL Total Bilirubin 0.9 (0.2-1.3) mg/dL AST 25 (14-36) U/L ALT 28 (6-35) U/L Alkaline Phosphatase 110 (38-126) U/L Total Protein 8.0 (6.3-8.2) g/dL Albumin 4.4 (3.5-5.1) g/dL Lipase 60 (23-300) U/L Urine Color Yellow (Yellow) Urine Appearance Cloudy H (Clear) Urine pH 8.0 (5.0-9.0) Ur Specific [place] 1.018 (1.001-1.035) Urine Protein Negative (Negative) mg/dL Urine Glucose (UA) Negative (Negative) mg/dL Urine Ketones Negative (Negative) mg/dL Ur Blood (Man) Negative (Negative) Urine Nitrate Negative (Negative) Urine Bilirubin Negative (Negative) Urine Urobilinogen 0.2 (<2.0) mg/dL Leukocyte Esterase Rfl 1+ H (Negative) DENIA/UL Urine RBC 0-2 (0-2) /hpf Urine WBC 21-50 H (0-3) /hpf Ur Squamous Epith Cells Moderate (Few) /hpf Urine Bacteria Rare /hpf Urine Casts 0-2 Urine Test Negative Urine Opiates Screen Negative (Negative) Urine Methadone Screen Negative (Negative) Ur Barbiturates Screen Negative (Negative) Ur Phencyclidine Scrn Negative (Negative) Ur Amphetamine Screen Negative (Negative) U Benzodiazepines Scrn Negative (Negative) Urine Cocaine Screen Negative (Negative) U Cannabinoids Screen Negative (Negative) Influenza A (RT-PCR) Negative (Negative) Influenza B (RT-PCR) Negative (Negative) RSV (RT-PCR) Negative (Negative) SARS-CoV-2 RNA (RT-PCR) Negative (Negative) Imaging Data Radiologist's impression: ITS Impressions Abdomen/Pelvis CT 09/11/24 17:50 IMPRESSION: Hepatosplenomegaly. Dominant follicle within the left ovary. Splenic (likely) subcentimeter cyst. Fluid-filled small bowel without obstruction. Normal appendix. Normal gallbladder. Discharge Plan Discharge Clinical Impression: Abdominal pain, Diarrhea, Urinary tract infection Patient Disposition: Home, Self-Care Condition: Stable Instructions: Urinary Tract Infection in Women (DC), Acute Diarrhea (ED) Patient Language: French Prescriptions: New ondansetron 4 mg tablet,disintegrating 4 mg PO Q4H 0 Days Qty: 10 0RF Rx Instructions: 1st dose 1-2 hr before radiation dicyclomine 20 mg tablet 20 mg PO QID PRN (Reason: abdominal pain) Qty: 20 0RF nitrofurantoin monohyd/m-cryst [Macrobid] 100 mg capsule 100 mg PO Q12H 5 Days Qty: 10 0RF Rx Instructions: must administer with a meal/food No Action DHA 200 mg capsule 1 mg PO DAILY Follow-up/Referrals: Abraham,Tamika Kyle APN [Primary Care Provider] - Ramesh Koenig MD [Physician] - 09/16/24
[2024-09-11] MEDS: ONDANSETRON INJ 4 MG/2 ML VIAL IV PUSH (14:02)
[2024-09-11] MEDS: KETOROLAC 30 MG/ML VIAL (*BKC) IV PUSH (14:02)
[2024-09-11 14:12] LABS: Basophils Percent Auto 0.3 % (0.2-1.2); Eosinophils Absolute Auto 0.1 K/mm3 (0-0.3); Eosinophils Percent Auto 0.6 % (0-4.4); Hematocrit 42.4 % (37.0-47.0); Hemoglobin 14.7 g/dL (12.0-15.0); Immature Granulocyte Absolute 0.03 K/mm3 (0.00-0.031); Immature Granulocyte Percent A 0.3 % (0-0.5); Lymphocytes Absolute Auto 0.52 K/mm3 (0.9-3.2); Lymphocytes Percent Auto 4.6 % (18.3-44.2); Mean Corpuscular HGB Conc 34.7 g/dl (32-36); Mean Corpuscular Hemoglobin 29.8 pg (26-34); Mean Corpuscular Volume 85.8 fl (80-100); Monocytes Absolute Auto 0.5 K/mm3 (0.1-0.6); Monocytes Percent Auto 4.2 % (2.6-8.5); Neutrophils Absolute Auto 10.1 K/mm3 (1.3-6.7); Platelet Count Result 217 k/mm3 (150-375); Red Blood Count 4.94 M/mm3 (4.2-5.4); Red Cell Distribution Width 12.7 % (11.5-14.5); White Blood Count 11.2 K/mm3 (4.5-10.0)
[2024-09-11 14:18] LABS: Add Urine Microscopic? YES; Appearance Urine Cloudy (Clear); Bacteria Urine Rare /hpf; Bilirubin Urine Negative (Negative); Blood Urine Negative (Negative); Color Urine Yellow (Yellow); Glucose Urine UA Negative (Negative); Ketones Urine Negative (Negative); Leukocyte Esterase Ur 1+ LEU/UL (Negative); Nitrate Urine Negative (Negative); Non Pathogenic Casts 0-2; Protein Urine Negative (Negative); RBC Urine 0-2 /hpf (0-2); Specific Grav Ur 1.018 (1.001-1.035); Squamous Epithelial Cell Urine Moderate /hpf (Few); Urobilinogen Urine 0.2 mg/dL (<2.0); WBC Urine 21-50 /hpf (0-3)
[2024-09-11 14:23] LABS: Alanine Aminotransferase 28 U/L (6-35); Albumin Level 4.4 g/dL (3.5-5.1); Alkaline Phosphatase 110 U/L (38-126); Anion Gap 9 mmol/L (4-12); Aspartate Amino Transferase 25 U/L (14-36); Bilirubin,Total 0.9 mg/dL (0.2-1.3); Blood Urea Nitrogen 12 mg/dL (7-17); Calcium 8.9 mg/dL (8.4-10.2); Carbon Dioxide 26 mmol/L (22-30); Chloride 104 mmol/L (98-107); Estimated CRCL calculation 106 ml/min; Estimated Glomerular Filt Rate > 60; Glucose 99 mg/dL (65-110); Lipase 60 U/L (23-300); Potassium 3.6 mmol/L (3.4-5.0); Pregnancy On Board Control Positive; Sodium 139 mmol/L (137-145); Urine Pregnancy Test Negative
[2024-09-11 14:43] LABS: Anisocytosis 1+; Platelet Estimate Adequate (Adequate); Schistocytes None Seen
[2024-09-11 14:45] VITALS: BP 114/79; PULSE 89; RESP 20; O2SAT 98
[2024-09-11 14:48] LABS: Influenza A QL RT-PCR Negative (Negative); Influenza B QL RT-PCR Negative (Negative); RSV RNA, RT-PCR Negative (Negative); SARS-CoV-2 RNA PCR Negative (Negative)
[2024-09-11] MEDS: SODIUM CHLORIDE 0.9% IV 1,000 ML 999 ML IV CONT (15:25)
--- NOTE | 2024-09-11 16:46 | ED_ITS ---
HPI - Abdominal Pain General Chief Complaint: Abdominal Pain Stated Complaint: stomach pain Time Seen by Provider: 09/11/24 13:00 Source: patient Mode of arrival: ambulatory Limitations: no limitations History of Present Illness HPI narrative: 39 YEARS OLD WHITE FEMALE DROVE HERSELF TO THE EMERGENCY ROOM COMPLAINING OF INTERMITTENT EPIGASTRIC PAIN FOR THE LAST 2 WEEKS, PATIENT DENIES AGGRAVATING OR RELIEVING FACTORS. 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 Related Data Home Medications ?Medication ?Instructions ?Recorded ?Confirmed ?Last Taken ?Type docosahexaenoic acid 200 mg 1 mg PO DAILY 09/17/20 06/22/21 04/17/21 09:00 History capsule ( DHA) Allergies Allergy/AdvReac Type Severity Reaction Status Date / Time milk AdvReac Mild Diarrhea Verified 06/22/21 13:22 Review of Systems 2 Review of Systems: All systems reviewed & are unremarkable except as noted in HPI and below PMFSH Past Medical History Medical History Vaginal delivery x2 Surgical History Surgical History H/O dilation and curettage retained placenta Family History Family History Father Pancreatic cancer Sibling Cervical cancer Mother Hypertension Grandparent Carcinoma of colon Cerebrovascular accident Social History Social History Smoking status: Never smoker Second hand tobacco smoke exposure: No Alcohol intake: never Substance use: never Gender identity (if verbalized by the patient): Female Spiritual care concerns: No Exam 2 Narrative: GENERAL APPEARANCE: WELL-DEVELOPED, WELL-NOURISHED SKIN: NORMAL COLOR HEAD: NORMOCEPHALIC, NONTRAUMATIC EYES: CLEAR CONJUNCTIVA ENT: OROPHARYNX NORMAL, EARS NORMAL, NOSE NORMAL NECK: SUPPLE, NONTENDER CHEST AND RESPIRATORY: AIRWAY PATENT, NO RESPIRATORY DISTRESS, NO ACCESSORY MUSCLE USE HEART: REGULAR RATE/RHYTHM ABDOMEN: SOFT, EPIGASTRIC TENDERNESS, NO ORGANOMEGALY, QUIET BOWEL SOUNDS VASCULAR: NORMAL PERIPHERAL PULSES, NORMAL CAPILLARY REFILL. MUSCULOSKELETAL: NORMAL RANGE OF MOTION, NONTENDER BACK NEUROLOGIC: ALERT AND ORIENTED ?3, INSTRUCTOR BRIDGE IS NORMAL TESTED, NO GROSS MOTOR DEFICIT Course Vital Signs Vital signs: Vital Signs Temperature 36.6 C 09/11/24 13:06 Pulse Rate 98 09/11/24 13:06 Respiratory Rate 17 09/11/24 13:06 Blood Pressure 140/86 09/11/24 13:06 Pulse Oximetry 100 09/11/24 13:06 Oxygen Delivery Room Air 09/11/24 13:06 Temperature 36.6 C 09/11/24 13:06 Pulse Rate 90 09/11/24 17:30 Respiratory Rate 16 09/11/24 17:30 Blood Pressure 114/90 09/11/24 17:30 Pulse Oximetry 98 09/11/24 17:30 Oxygen Delivery Room Air 09/11/24 13:06 MDM - Abdominal Pain MDM Narrative Medical decision making narrative: PATIENT PRESENTS WITH EPIGASTRIC PAIN VITAL SIGNS ARE STABLE PHYSICAL EXAMINATION CONSISTENT WITH TENDERNESS AT THE EPIGASTRIC AREA DIFFERENTIAL DIAGNOSIS INCLUDE PANCREATITIS, CHOLECYSTITIS, CONSTIPATION, GASTROENTERITIS, ESOPHAGITIS, GASTRITIS BLOOD WORKUP TODAY INCLUDES CBC, CMP AND LIPASE SHOWED WBC 11.2, OTHERWISE WITHIN NORMAL LIMIT URINALYSIS SHOWED SYMPTOM OF URINARY TRACT INFECTION CT SCAN OF THE ABDOMEN AND PELVIS SHOWED Hepatosplenomegaly. Dominant follicle within the left ovary. Splenic (likely) subcentimeter cyst. Fluid-filled small bowel without obstruction. Normal appendix. Normal gallbladder. DISCHARGE DIAGNOSIS DIARRHEA, EPIGASTRIC PAIN, URINARY TRACT INFECTION DISCHARGED ON ZOFRAN, BENTYL AND MACROBID THE PT WAS DISCHARGED TO HOME.THE PT,S CONDITION UPON DISCHARGE WAS FAIR,EDUCATION WAS PROVIDED TO THE PT IN REFERENCE TO THE FINAL IMPRESSION,DISCHARGE STUDY RESULTS,TREATMENT,PROGNOSIS AND NEED FOR FOLLOW UP . Differential Diagnosis Differential diagnosis: Likely other ( ABOVE) Medical Records Attestation: I reviewed the patient's medical records. Lab Data Attestation: I reviewed the patient's lab results. 09/11/24 14:00 09/11/24 14:00 Labs: Lab Results 09/11/24 09/11/24 Range/Units 14:00 14:50 WBC 11.2 H (4.5-10.0) K/mm3 RBC 4.94 (4.2-5.4) M/mm3 Hgb 14.7 D (12.0-15.0) g/dL Hct 42.4 (37.0-47.0) % MCV 85.8 (80-100) fl MCH 29.8 (26-34) pg MCHC 34.7 (32-36) g/dl RDW 12.7 (11.5-14.5) % Plt Count 217 (150-375) k/mm3 MPV 9.0 (7.4-10.4) fl Immature Gran % (Auto) 0.3 (0-0.5) % Neut % (Auto) 90.0 H (45.5-73.1) % Lymph % (Auto) 4.6 L (18.3-44.2) % [place] % (Auto) 4.2 (2.6-8.5) % Eos % (Auto) 0.6 (0-4.4) % Baso % (Auto) 0.3 (0.2-1.2) % Lymph # (Auto) 0.52 L (0.9-3.2) K/mm3 [place] # (Auto) 0.5 (0.1-0.6) K/mm3 Eos # (Auto) 0.1 (0-0.3) K/mm3 Baso # (Auto) 0.0 (0.0-0.1) K/mm3 Abs Immat Gran (auto) 0.03 (0.00-0.031) K/mm3 Absolute Neuts (auto) 10.1 H (1.3-6.7) K/mm3 Absolute Nucleated RBC 0.000 (0.0-0.012) K/mm3 Nucleated RBC % 0.0 (0.0-0.2) % Platelet Estimate Adequate (Adequate) Anisocytosis 1+ Schistocytes None seen Sodium 139 (137-145) mmol/L Potassium 3.6 (3.4-5.0) mmol/L Chloride 104 (98-107) mmol/L Carbon Dioxide 26 (22-30) mmol/L Anion Gap 9 (4-12) mmol/L BUN 12 D (7-17) mg/dL Creatinine 0.60 L (0.7-1.0) mg/dL Estim Creat Clear Calc 106 ml/min Estimated GFR > 60 (59 - ) Glucose 99 (65-110) mg/dL Calcium 8.9 (8.4-10.2) mg/dL Total Bilirubin 0.9 (0.2-1.3) mg/dL AST 25 (14-36) U/L ALT 28 (6-35) U/L Alkaline Phosphatase 110 (38-126) U/L Total Protein 8.0 (6.3-8.2) g/dL Albumin 4.4 (3.5-5.1) g/dL Lipase 60 (23-300) U/L Urine Color Yellow (Yellow) Urine Appearance Cloudy H (Clear) Urine pH 8.0 (5.0-9.0) Ur Specific [place] 1.018 (1.001-1.035) Urine Protein Negative (Negative) mg/dL Urine Glucose (UA) Negative (Negative) mg/dL Urine Ketones Negative (Negative) mg/dL Ur Blood (Man) Negative (Negative) Urine Nitrate Negative (Negative) Urine Bilirubin Negative (Negative) Urine Urobilinogen 0.2 (<2.0) mg/dL Leukocyte Esterase Rfl 1+ H (Negative) DENIA/UL Urine RBC 0-2 (0-2) /hpf Urine WBC 21-50 H (0-3) /hpf Ur Squamous Epith Cells Moderate (Few) /hpf Urine Bacteria Rare /hpf Urine Casts 0-2 Urine Test Negative Urine Opiates Screen Negative (Negative) Urine Methadone Screen Negative (Negative) Ur Barbiturates Screen Negative (Negative) Ur Phencyclidine Scrn Negative (Negative) Ur Amphetamine Screen Negative (Negative) U Benzodiazepines Scrn Negative (Negative) Urine Cocaine Screen Negative (Negative) U Cannabinoids Screen Negative (Negative) Influenza A (RT-PCR) Negative (Negative) Influenza B (RT-PCR) Negative (Negative) RSV (RT-PCR) Negative (Negative) SARS-CoV-2 RNA (RT-PCR) Negative (Negative) Imaging Data Radiologist's impression: ITS Impressions Abdomen/Pelvis CT 09/11/24 17:50 IMPRESSION: Hepatosplenomegaly. Dominant follicle within the left ovary. Splenic (likely) subcentimeter cyst. Fluid-filled small bowel without obstruction. Normal appendix. Normal gallbladder. Critical Care Time Critical Care Time Critical Care Time: No Discharge Plan Discharge Clinical Impression: Abdominal pain, Diarrhea, Urinary tract infection Patient Disposition: Home, Self-Care Condition: Stable Instructions: Urinary Tract Infection in Women (DC), Acute Diarrhea (ED) Patient Language: Bulgarian Prescriptions: New ondansetron 4 mg tablet,disintegrating 4 mg PO Q4H 0 Days Qty: 10 0RF Rx Instructions: 1st dose 1-2 hr before radiation dicyclomine 20 mg tablet 20 mg PO QID PRN (Reason: abdominal pain) Qty: 20 0RF nitrofurantoin monohyd/m-cryst [Macrobid] 100 mg capsule 100 mg PO Q12H 5 Days Qty: 10 0RF Rx Instructions: must administer with a meal/food No Action DHA 200 mg capsule 1 mg PO DAILY Follow-up/Referrals: Abraham,Tamika Kyle APN [Primary Care Provider] - Ramesh Koenig MD [Physician] - 09/16/24
[2024-09-11 17:30] VITALS: BP 114/90; PULSE 90; RESP 16; O2SAT 98
[2024-09-11 17:36] LABS: Amphetamine Screen Urine Negative (Negative); Barbiturate Screen Urine Negative (Negative); Benzodiazepines Screen Urine Negative (Negative); Cannabinoid Screen Urine Negative (Negative); Cocaine Screen Urine Negative (Negative); Methadone Screen Urine Negative (Negative); Opiate Screen Urine Negative (Negative); Phencyclidine Screen Urine Negative (Negative)
[2024-09-11 19:20] VITALS: BP 111/62; PULSE 78; RESP 16; O2SAT 98
--- OUTSIDE RECORDS SUMMARY | 2024-09-12 04:53 | XMS_ITS | Data Portability ---
Author Organization [facility] RUDIAdeel Coates Address [address] [place] [address] Care Team Providers Care Hospitality Host Name Role Phone KENNEDY, TAMIKA Primary Care Provider FABRICE Dickinson Carpenter [employer] Assessment No assessment recorded. Plan of Treatment Reminders Order Date Submit Date Provider Last Modified By Organization Details Last Modified Time Details Appointments None recorded . Lab vitamin D, 25-hydro xy, total, serum 2021 022 [facility], [address] [place] [address], [address], [place], [address], 08:19:17 TSH, ultra-se nsitive, serum 2021 022 [facility], [address] Same[address]son, [address], [place], [address], 2 08:19:21 CMP, serum or plasma 2021 022 [facility], 2022 Sameer Paulson, [address], [place], [address], 2 08:19:14 lipid panel, serum 2021 022 [facility], 2022 Sameer Paulson, [address], [place], [address], 2 08:19:15 CBC 2021 022 [facility], 2022 Sameer Paulson, [address], [place], [address], 2 08:19:15 vitamin B12 + folate, serum or blood 2021 022 [facility], [address] [place] [address] 2, [place], [address], 2 08:19:17 iron + total iron-bin ding capacity (TIBC), serum 2021 022 [facility], [address] [place] [address] 2, [place], [address], 2 08:19:16 ferritin , serum or plasma 2021 022 [facility], [address] [place] [address], [facility] 2, [place], [address], 2 08:19:22 vitamin D, 25-hydro xy, total, serum 2022 023 [facility], [address] [place] [address] 2, [place], [address], 3 08:27:32 TSH, ultra-se nsitive, serum 2022 023 [facility], [address] Same[address]son, [address], [place], [address], 3 08:27:32 CMP, serum or plasma 2022 023 [facility], 2022 Sameer Pualson, [address], [place], [address], 3 03:08:20 lipid panel, serum 2022 023 [facility], 2022 Sameer Paulson, [address], [place], [address], 3 03:08:20 CBC 2022 023 [facility], 2022 Same[address] Paulson, [address], [place], [address], 3 03:08:21 vitamin D, 25-hydro xy, total, serum 2023 024 [facility], [address] [facility], [address], [place], [address], 4 08:22:52 TSH, ultra-se nsitive, serum 2023 024 [facility], 2022 Same[address]son, [address], [place], [address], 4 08:22:50 CMP, serum or plasma 2023 024 [facility], 2022 Sameer Paulson, [address], [place], [address], 4 08:22:49 lipid panel, serum 2023 024 [facility], 2022 Sameer Paulson, [address], [place], [address], 4 08:22:47 CBC 2023 024 [facility], 2022 Sameer Paulson, [address], [place], [address], 4 08:22:51 Referral None recorded . Procedures None recorded . Surgeries None recorded . Imaging None recorded . Medication Orders paroxeti ne 10 mg tablet 2021 022 [id number], [address] [place], [place], [id number], 3 09:45:33 paroxeti ne 10 mg tablet 2022 023 [id number], [address] [place], [place], [id number], 3 09:45:33 fluticas one propiona te 50 mcg/actu ation nasal spray,gillis spension 2023 [facility] #[id number], [address], [place], [place], [id number], 4 16:37:52 Medrol (Ricardo) 4 mg tablets in a dose pack 2023 024 [facility] #[id number], [address], [place], [place], [id number], 16:37:51 Patient TargetsNo targets recorded. Patient Instructions Encounter Date Encounter Id Patient Instructions Last Modified By Organization Details Last Modified Time 04/25/2022 [id number] body mass index: care instructions Not available 04/25/2022 11:41:18 learning about healthy weight Not available 04/25/2022 11:41:18 Continue to work on diet. Increase activity level to get exercise most days of the week. Work on eating more fresh fruit, veggies and lean protein and less packaged foods. Take all medications as prescribed. Keep appointments with PCP and all specialists. Cut back on the fatty foods, add fish oil or omega three fatty acids; Drink more water! Low salt diet. Not available 04/26/2022 13:59:37 dwp labs needed, plan pending results Not available 04/26/2022 13:59:48 10/31/2022 [id number] A healthy lifestyle: care instructions Not available 10/31/2022 09:57:28 learning about vitamin D Not available 10/31/2022 09:57:28 Continue to take medications as prescribed, do not abruptly stop them. Try walking or deep breathing exercises when feeling anxious. Stress management recommended-posit poli imagery. Increase activity to 30 min a day most days. Call or return if problem persists or worsens. Not available 10/31/2022 09:51:07 f/u 6 months DWP barriers to care: none Not available 10/31/2022 09:51:25 06/25/2023 [id number] influenza (flu) vaccine: care instructions Not available 06/25/2023 10:09:42 A healthy lifestyle: care instructions Not available 06/25/2023 10:09:16 learning about vitamin D Not available 06/25/2023 10:09:16 anxiety and delma c coping education Not available 06/25/2023 10:10:25 Increase intake of fresh fruits,? ? ? and vegetables. Avoid packaged foods and fast foods. ? ? ? Follow a low salt diet, drink at least 8-10 8oz glasses of water a day, exercise most days of the week. Take all medications as prescribed. Keep appointments with PCP and all specialists. Not available 06/25/2023 10:09:47 follow up as needed, yearly to keep established with provider Not available 06/25/2023 10:10:06 07/09/2024 [id number] When You Want to Lose Weight: Care Instructions Not available 07/09/2024 17:40:36 Increase intake of fresh fruits,? ? ? and vegetables. Avoid packaged foods and fast foods. ? ? ? Follow a low salt diet, drink at least 8-10 8oz glasses of water a day, exercise most days of the week. Take all medications as prescribed. Keep appointments with PCP and all specialists. Not available 07/09/2024 17:41:44 dwp labs needed, plan pending results [email or web address] Not available 07/09/2024 17:41:49 08/06/2024 [id number] eustachian tube problems: care instructions Not available 08/06/2024 16:37:46 Mucinex and othe r OTC cold/cough remedies are fine to take, increase fluids and have good handwashing. Get plenty of rest. Not available 08/06/2024 16:41:03 follow up as needed Not available 08/06/2024 16:41:15 Reason for Referral None Reported. Results Created Date Observation Date Name Description Value Unit Range Abnormal Flag Note LastModifiedBy Organization Detail LastModifiedTime 04/25/20 22 04/26/2022 COMP. METAB OLIC PANEL (14) glucose 96 mg/dL 65-99 Not Available [facility] ([facility]) [address] [facility] [place], [address], 04/26/2022 08:19:14 04/25/20 22 04/26/2022 COMP. METAB OLIC PANEL (14) BUN 11 mg/dL 6-20 Not Available [facility] ([facility]) [address] [facility], [address], 04/26/2022 08:19:14 04/25/20 22 04/26/2022 COMP. METAB OLIC PANEL (14) creatinine 0.73 mg/dL 0.57-1 .00 Not Available [facility] ([facility]) [address] [facility], [place], [address], 04/26/2022 08:19:14 04/25/20 22 04/26/2022 COMP. METAB OLIC PANEL (14) eGFR 109 mL/mi n/1.7 3 >59 Not Available [facility] ([facility]) [address] [facility], [place], [address], 04/26/2022 08:19:14 04/25/20 22 04/26/2022 COMP. METAB OLIC PANEL (14) BUN/creatini ne ratio 15 9-23 Not Available [facility] ([facility]) [address] [place], [address], 04/26/2022 08:19:14 04/25/20 22 04/26/2022 COMP. METAB OLIC PANEL (14) sodium 141 mmol/ L 134-14 4 Not Available [facility] ([facility]) [address] [place], [address], 04/26/2022 08:19:14 04/25/20 22 04/26/2022 COMP. METAB OLIC PANEL (14) potassium 3.9 mmol/ L 3.5-5. 2 Not Available [facility] ([facility]) [address] [place], [address], 04/26/2022 08:19:14 04/25/20 22 04/26/2022 COMP. METAB OLIC PANEL (14) chloride 107 mmol/ L 96-106 above high normal Not Available [facility] ([facility]) [address] [place], [address], 04/26/2022 08:19:14 04/25/20 22 04/26/2022 COMP. METAB OLIC PANEL (14) carbon dioxide, total 19 mmol/ L 20-29 below low normal Not Available [facility] ([facility]) [address] [place], [address], 04/26/2022 08:19:14 04/25/20 22 04/26/2022 COMP. METAB OLIC PANEL (14) calcium 9.2 mg/dL 8.7-10 .2 Not Available [facility] ([facility]) [address] [place], [address], 04/26/2022 08:19:14 04/25/20 22 04/26/2022 COMP. METAB OLIC PANEL (14) protein, total 7.0 g/dL 6.0-8. 5 Not Available [facility] ([facility]) [address] [place], [address], 04/26/2022 08:19:14 04/25/20 22 04/26/2022 COMP. METAB OLIC PANEL (14) albumin 4.2 g/dL 3.8-4. 8 Not Available [facility] ([facility]) [address] [place], [address], 04/26/2022 08:19:14 04/25/20 22 04/26/2022 COMP. METAB OLIC PANEL (14) globulin, total 2.8 g/dL 1.5-4. 5 Not Available [facility] ([facility]) [address] [place], [address], 04/26/2022 08:19:14 04/25/20 22 04/26/2022 COMP. METAB OLIC PANEL (14) A/G ratio 1.5 1.2-2. 2 Not Available [facility] ([facility]) [address] [facility], [address], 04/26/2022 08:19:14 04/25/20 22 04/26/2022 COMP. METAB OLIC PANEL (14) bilirubin, total 0.3 mg/dL 0.0-1. 2 Not Available [facility] ([facility]) [address] [facility], [address], 04/26/2022 08:19:14 04/25/20 22 04/26/2022 COMP. METAB OLIC PANEL (14) alkaline phosphatase 127 IU/L 44-121 above high normal Not Available [facility] ([facility]) [address] [facility], [place], [address], 04/26/2022 08:19:14 04/25/20 22 04/26/2022 COMP. METAB OLIC PANEL (14) AST (SGOT) 18 IU/L 0-40 Not Available [facility] ([facility]) [address] [place], [address], 04/26/2022 08:19:14 04/25/20 22 04/26/2022 COMP. METAB OLIC PANEL (14) ALT (SGPT) 12 IU/L 0-32 Not Available [facility] ([facility]) [address] [place], [address], 04/26/2022 08:19:14 04/25/20 22 04/26/2022 CBC, NO DIFFE RENTI AL/PL ATELE T WBC 7.7 x10e3 /uL 3.4-10 .8 Not Available [facility] ([facility]) [address] [place], [address], 04/26/2022 08:19:15 04/25/20 22 04/26/2022 CBC, NO DIFFE RENTI AL/PL ATELE T RBC 4.67 x10e6 /uL 3.77-5 .28 Not Available [facility] ([facility]) [address] [place], [address], 04/26/2022 08:19:15 04/25/2004/26/2022 CBC, NO DIFFE RENTI AL/PL ATELE T hemoglobin 13.0 g/dL 11.1-1 5.9 Not Available [facility] ([facility]) [address] [place], [address], 04/26/2022 08:19:15 04/25/2004/26/2022 CBC, NO DIFFE RENTI AL/PL ATELE T hematocrit 38.5 % 34.0-4 6.6 Not Available [facility] ([facility]) [address] [place], [address], 04/26/2022 08:19:15 04/25/2004/26/2022 CBC, NO DIFFE RENTI AL/PL ATELE T MCV 82 fL 79-97 Not Available [facility] ([facility]) [address] [place], [address], 04/26/2022 08:19:15 04/25/2004/26/2022 CBC, NO DIFFE RENTI AL/PL ATELE T MCH 27.8 pg 26.6-3 3.0 Not Available [facility] ([facility]) [address] [place], [address], 04/26/2022 08:19:15 04/25/2004/26/2022 CBC, NO DIFFE RENTI AL/PL ATELE T MCHC 33.8 g/dL 31.5-3 5.7 Not Available [facility] ([facility]) [address] [place], [address], 04/26/2022 08:19:15 04/25/20 22 04/26/2022 CBC, NO DIFFE RENTI AL/PL ATELE T RDW 13.0 % 11.7-1 5.4 Not Available [facility] ([facility]) [address] [place], [address], 04/26/2022 08:19:15 04/25/20 22 04/26/2022 CBC, NO DIFFE RENTI AL/PL ATELE T NRBC [employer]MENT Not Available [facility] ([facility]) [address] [place], [address], 04/26/2022 08:19:15 04/25/20 22 04/26/2022 LIPID PANEL cholesterol, total 144 mg/dL 100-19 9 Not Available [facility] ([facility]) [address] [place], [address], 04/26/2022 08:19:15 04/25/20 22 04/26/2022 LIPID PANEL triglyceride s 86 mg/dL 0-149 Not Available [facility] ([facility]) [address] [place], [address], 04/26/2022 08:19:15 04/25/20 22 04/26/2022 LIPID PANEL HDL cholesterol 54 mg/dL >39 Not Available [facility] ([facility]) [address] [place], [address], 04/26/2022 08:19:15 04/25/20 22 04/26/2022 LIPID PANEL VLDL cholesterol sirisha 16 mg/dL 5-40 Not Available [facility] ([facility]) [address] [place], [address], 04/26/2022 08:19:15 04/25/20 22 04/26/2022 LIPID PANEL LDL chol calc (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 Not Available [facility] ([facility]) [address] [facility] [place], [address], 04/26/2022 08:19:15 04/25/20 22 04/26/2022 IRON AND TIBC iron bind.cap.(TI BC) 327 ug/dL 250-45 0 Not Available [facility] ([facility]) [address] [facility], [address], 04/26/2022 08:19:16 04/25/20 22 04/26/2022 IRON AND TIBC UIBC 284 ug/dL 131-42 5 Not Available [facility] ([facility]) [address] [place], [address], 04/26/2022 08:19:16 04/25/20 22 04/26/2022 IRON AND TIBC iron 43 ug/dL 27-159 Not Available [facility] ([facility]) [address] [facility], [address], 04/26/2022 08:19:16 04/25/20 22 04/26/2022 IRON AND TIBC iron saturation 13 % 15-55 below low normal Not Available [facility] ([facility]) [address] [place], [address], 04/26/2022 08:19:16 04/25/20 22 04/26/2022 VITAM IN B12 AND FOLAT E vitamin B12 351 pg/mL 232-12 45 Not Available [facility] ([facility]) [address] [facility], [address], 04/26/2022 08:19:17 04/25/20 22 04/26/2022 VITAM IN B12 AND FOLAT E folate (folic acid), serum 13.6 NG/mL >3.0 A serum folat e jeannette ntrat ion of less than 3.1 ng/mL is consi dered to repre sent clini sirisha defic iency . Not Available [facility] ([facility]) [address] [facility], [place], [address], 04/26/2022 08:19:17 04/25/20 22 04/26/2022 VITAM IN D, 25-HY DROXY vitamin D, 25-hydroxy 35.1 NG/mL 30.0-1 00.0 Vitam in D defic iency has been defin ed by the Insti tute of Medic ine and an Endoc rine Socie ty pract ice guide line as a level of serum 25-OH vitam in D less than 20 ng/mL (1,2) . The Endoc rine Socie ty went on to furth er defin e vitam in D insuf ficie ncy as a level betwe en 21 and 29 ng/mL (2). 1. IOM (Inst itute of Medic ine). 2010. Dieta ry refer ence intak es for calci um and D. Landry linton [place]: The [facility] . 2. Padmini valentin MF, Sourav colvin [place], Juan J off-F errar i SMALL, et al. Evalu ation , treat ment, and preve ntion of vitam in D defic iency : an Endoc rine Socie ty clini sirisha pract ice guide line. EM. 2010; 96(7) :1911 -30. Not Available [facility] ([facility]) [address] [facility], [place], [address], 04/26/2022 08:19:17 04/25/20 22 04/26/2022 TSH RFX ON ABNOR MAL TO FREE T4 TSH 1.060 uIU/m L 0.450- 4.500 Not Available [facility] ([facility]) [address] [facility], [place], [address], 04/26/2022 08:19:21 04/25/20 22 04/26/2022 GIANCARLO TIN ferritin 19 NG/mL 15-150 Not Available [facility] ([facility]) [address] [facility], [place], [address], 04/26/2022 08:19:22 06/25/20 23 06/25/2023 LIPID PANEL cholesterol, total 126 mg/dL 100-19 9 Not Available [facility] [address] [place] [address], [address], 06/26/2023 03:08:19 06/25/20 23 06/25/2023 LIPID PANEL triglyceride s 52 mg/dL 0-149 Not Available [facility] [address] [place] [address], [address], 06/26/2023 03:08:19 06/25/20 23 06/25/2023 LIPID PANEL HDL cholesterol 47 mg/dL 40-999 Not Available [facility] [address] [place] [address], [address], 06/26/2023 03:08:19 06/25/20 23 06/25/2023 LIPID PANEL VLDL cholesterol sirisha 10 mg/dL 5-40 Not Available [facility] [address] [place] [address], [address], 06/26/2023 03:08:19 06/25/20 23 06/25/2023 LIPID PANEL LDL chol calc ([facility]) 74 mg/dL 0-99 Not Available [facility] Department [address] [place], [address], 06/26/2023 03:08:19 06/25/20 23 06/25/2023 COMP. METAB OLIC PANEL (14) glucose 86 mg/dL 70-99 Not Available [facility] [address] [place], [address], 06/26/2023 03:08:20 06/25/20 23 06/25/2023 COMP. METAB OLIC PANEL (14) BUN 13 mg/dL 6-20 Not Available [facility] [address] [place] [address], [address], 06/26/2023 03:08:20 06/25/20 23 06/25/2023 COMP. METAB OLIC PANEL (14) creatinine 0.59 mg/dL 0.76-1 .27 below low normal Not Available [facility] [address] [place] [address], [address], 06/26/2023 03:08:20 06/25/20 23 06/25/2023 COMP. METAB OLIC PANEL (14) eGFR 119 >=60 Units for eGFR value s are mL/mi n/1.7 3 The eGFR Calcu latio n has not been valid ated for patie nts under the age of 18. If test resul ts are displ ayed for a patie nt under the age of 18, disre oskar that value . Not Available [facility] [address] [place] [address], [address], 06/26/2023 03:08:20 06/25/20 23 06/25/2023 COMP. METAB OLIC PANEL (14) BUN/creatini ne ratio 21 9-23 Not Available [facility] [address] [place] [address], [address], 06/26/2023 03:08:20 06/25/20 23 06/25/2023 COMP. METAB OLIC PANEL (14) sodium 140 mmol/ L 134-14 4 Not Available [facility] [address] [place] [address], [address], 06/26/2023 03:08:20 06/25/20 23 06/25/2023 COMP. METAB OLIC PANEL (14) potassium 4.1 mmol/ L 3.5-5. 2 Not Available [facility] [address] [place] [address], [address], 06/26/2023 03:08:20 06/25/20 23 06/25/2023 COMP. METAB OLIC PANEL (14) chloride 105 mmol/ L 96-106 Not Available [facility] [address] [place], [address], 06/26/2023 03:08:20 06/25/20 23 06/25/2023 COMP. METAB OLIC PANEL (14) carbon dioxide, total 24 mmol/ L Not Available [facility] [address] [place], [address], 06/26/2023 03:08:20 06/25/20 23 06/25/2023 COMP. METAB OLIC PANEL (14) calcium 8.9 mg/dL 8.7-10 .2 Not Available [facility] [address] [place], [address], 06/26/2023 03:08:20 06/25/20 23 06/25/2023 COMP. METAB OLIC PANEL (14) protein, total 7.0 g/dL 6.0-8. 5 Not Available [facility] [address] [place], [address], 06/26/2023 03:08:20 06/25/20 23 06/25/2023 COMP. METAB OLIC PANEL (14) albumin 4.1 g/dL 3.9-4. 9 Not Available [facility] [address] [place], [address], 06/26/2023 03:08:20 06/25/20 23 06/25/2023 COMP. METAB OLIC PANEL (14) globulin, total 2.9 g/dL 1.5-4. 5 Not Available [facility] Department [address] [place], [address], 06/26/2023 03:08:20 06/25/20 23 06/25/2023 COMP. METAB OLIC PANEL (14) A/G ratio 1.0 1.2-2. 2 below low normal Not Available [facility] Department [address] [place], [address], 06/26/2023 03:08:20 06/25/20 23 06/25/2023 COMP. METAB OLIC PANEL (14) bilirubin, total 0.5 mg/dL 0.0-1. 2 Not Available [facility] [address] [place], [address], 06/26/2023 03:08:20 06/25/20 23 06/25/2023 COMP. METAB OLIC PANEL (14) alkaline phosphatase 113 IU/L 44-121 Not Available [facility] Department [address] [place], [address], 06/26/2023 03:08:20 06/25/20 23 06/25/2023 COMP. METAB OLIC PANEL (14) AST (SGOT) 17 IU/L 0-40 Not Available [facility] Department [address] [place] [address], [address], 06/26/2023 03:08:20 06/25/20 23 06/25/2023 COMP. METAB OLIC PANEL (14) ALT (SGPT) 14 IU/L 0-32 Not Available [facility] Department [address] [place] [address], [address], 06/26/2023 03:08:20 06/25/20 23 06/25/2023 CBC, NO DIFFE RENTI AL/PL ATELE T WBC 7.1 x10e3 /uL 3.4-10 .8 Not Available [facility] [address] [place], [address], 06/26/2023 03:08:21 06/25/20 23 06/25/2023 CBC, NO DIFFE RENTI AL/PL ATELE T RBC 4.43 x10e6 /uL 3.77-5 .28 Not Available [facility] [address] [place], [address], 06/26/2023 03:08:21 06/25/20 23 06/25/2023 CBC, NO DIFFE RENTI AL/PL ATELE T hemoglobin 12.4 g/dL .1-1 5.9 Not Available [facility] [address] [place], [address], 06/26/2023 03:08:21 06/25/2006/25/2023 CBC, NO DIFFE RENTI AL/PL ATELE T hematocrit 38.2 % 34.0-4 6.6 Not Available [facility] [address] [place], [address], 06/26/2023 03:08:21 06/25/2006/25/2023 CBC, NO DIFFE RENTI AL/PL ATELE T MCV 86 fL 79-97 Not Available [facility] [address] [place], [address], 06/26/2023 03:08:21 06/25/2006/25/2023 CBC, NO DIFFE RENTI AL/PL ATELE T MCH 28.0 pg 26.6-3 3.0 Not Available [facility] [address] [place], [address], 06/26/2023 03:08:21 06/25/2006/25/2023 CBC, NO DIFFE RENTI AL/PL ATELE T MCHC 32.5 g/dL 31.5-3 5.7 Not Available [facility] [address] [place], [address], 06/26/2023 03:08:21 06/25/2006/25/2023 CBC, NO DIFFE RENTI AL/PL ATELE T RDW 12.8 % 11.5-1 4.5 Not Available [facility] [address] [place], [address], 06/26/2023 03:08:21 06/25/2006/25/2023 CBC, NO DIFFE RENTI AL/PL ATELE T NRBC 0 % 0-0 Not Available [facility] Department [address] [place], [address], 06/26/2023 03:08:21 06/25/20 23 06/26/2023 TSH RFX ON ABNOR MAL TO FREE T4 TSH 1.170 uIU/m L 0.450- 4.500 Not Available [facility] ([facility]) [address] [facility], [place], [address], 06/26/2023 08:27:32 06/25/20 23 06/26/2023 VITAM IN D, 25-HY DROXY vitamin D, 25-hydroxy 27.4 NG/mL 30.0-1 00.0 below low normal Vitam in D defic iency has been defin ed by the Insti tute of Medic ine and an Endoc rine Socie ty pract ice guide line as a level of serum 25-OH vitam in D less than 20 ng/mL (1,2) . The Endoc rine Socie ty went on to furth er defin e vitam in D insuf ficie ncy as a level betwe en 21 and 29 ng/mL (2). 1. IOM (Inst itute of Medic ine). 2010. Dieta ry refer ence gideon es for calci um and D. Landry linton [place]: The [facility] Press . 2. Padmini valentin MF, Sourav colvin [place], Juan J off-F errar i SMALL, et al. Evalu ation , treat ment, and preve ntion of vitam in D defic iency : an Endoc rine Socie ty clini sirisha pract ice guide line. JCEM. 2010; 96(7) :1911 -30. Not Available [facility] ([facility]) [address] [facility], [place], [address], 06/26/2023 08:27:32 07/28/20 24 07/29/2024 LIPID PANEL cholesterol, total 138 mg/dL 100-19 9 Not Available [facility] ([facility]) [address] [facility], [place], [address], 07/29/2024 08:22:47 07/28/20 24 07/29/2024 LIPID PANEL triglyceride s 78 mg/dL 0-149 Not Available [facility] Lab) [address] [place], [address], 07/29/2024 08:22:47 07/28/20 24 07/29/2024 LIPID PANEL HDL cholesterol 53 mg/dL >39 Not Available [facility] ([facility]) [address] [place], [address], 07/29/2024 08:22:47 07/28/20 24 07/29/2024 LIPID PANEL VLDL cholesterol sirisha 15 mg/dL 5-40 Not Available [facility] ([facility]) [address] [place], [address], 07/29/2024 08:22:47 07/28/20 24 07/29/2024 LIPID PANEL LDL chol calc (nih) 70 mg/dL 0-99 Not Available [facility] ([facility]) [address] [place], [address], 07/29/2024 08:22:47 07/28/20 24 07/29/2024 COMP. METAB OLIC PANEL (14) glucose 89 mg/dL 70-99 Not Available [facility] ([facility]) [address] [place], [address], 07/29/2024 08:22:48 07/28/20 24 07/29/2024 COMP. METAB OLIC PANEL (14) BUN 11 mg/dL 6-20 Not Available [facility] ([facility]) [address] [place], [address], 07/29/2024 08:22:48 07/28/20 24 07/29/2024 COMP. METAB OLIC PANEL (14) creatinine 0.70 mg/dL 0.57-1 .00 Not Available [facility] ([facility]) [address] [place], [address], 07/29/2024 08:22:48 07/28/20 24 07/29/2024 COMP. METAB OLIC PANEL (14) eGFR 113 mL/mi n/1.7 3 >59 Not Available [facility] ([facility]) [address] [facility], [place], [address], 07/29/2024 08:22:48 07/28/20 24 07/29/2024 COMP. METAB OLIC PANEL (14) BUN/creatini ne ratio 16 9-23 Not Available [facility] ([facility]) [address] [facility], [place], [address], 07/29/2024 08:22:48 07/28/20 24 07/29/2024 COMP. METAB OLIC PANEL (14) sodium 140 mmol/ L 134-14 4 Not Available [facility] ([facility]) [address] [facility], [place], [address], 07/29/2024 08:22:48 07/28/20 24 07/29/2024 COMP. METAB OLIC PANEL (14) potassium 3.8 mmol/ L 3.5-5. 2 Not Available [facility] ([facility]) [address] [facility], [place], [address], 07/29/2024 08:22:48 07/28/20 24 07/29/2024 COMP. METAB OLIC PANEL (14) chloride 108 mmol/ L 96-106 above high normal Not Available [facility] ([facility]) [address] [facility], [place], [address], 07/29/2024 08:22:48 07/28/20 24 07/29/2024 COMP. METAB OLIC PANEL (14) carbon dioxide, total 21 mmol/ L 20-29 Not Available [facility] ([facility]) [address] [place], [address], 07/29/2024 08:22:48 07/28/20 24 07/29/2024 COMP. METAB OLIC PANEL (14) calcium 8.8 mg/dL 8.7-10 .2 Not Available [facility] ([facility]) [address] [place], [address], 07/29/2024 08:22:48 07/28/20 24 07/29/2024 COMP. METAB OLIC PANEL (14) protein, total 6.7 g/dL 6.0-8. 5 Not Available [facility] ([facility]) [address] [place], [address], 07/29/2024 08:22:48 07/28/20 24 07/29/2024 COMP. METAB OLIC PANEL (14) albumin 4.1 g/dL 3.9-4. 9 Not Available [facility] ([facility]) [address] [facility] [place], [address], 07/29/2024 08:22:48 07/28/20 24 07/29/2024 COMP. METAB OLIC PANEL (14) globulin, total 2.6 g/dL 1.5-4. 5 Not Available [facility] ([facility]) [address] [place], [address], 07/29/2024 08:22:48 07/28/20 24 07/29/2024 COMP. METAB OLIC PANEL (14) bilirubin, total 0.7 mg/dL 0.0-1. 2 Not Available [facility] ([facility]) [address] [place], [address], 07/29/2024 08:22:48 07/28/20 24 07/29/2024 COMP. METAB OLIC PANEL (14) alkaline phosphatase 102 IU/L 44-121 Not Available [facility] ([facility]) [address] [place], [address], 07/29/2024 08:22:48 07/28/20 24 07/29/2024 COMP. METAB OLIC PANEL (14) AST (SGOT) 22 IU/L 0-40 Not Available [facility] ([facility]) [address] [facility], [place], [address], 07/29/2024 08:22:48 07/28/20 24 07/29/2024 COMP. METAB OLIC PANEL (14) ALT (SGPT) 20 IU/L 0-32 Not Available [facility] ([facility]) [address] [facility], [place], [address], 07/29/2024 08:22:48 07/28/20 24 07/29/2024 TSH RFX ON ABNOR MAL TO FREE T4 TSH 1.260 uIU/m L 0.450- 4.500 Not Available [facility] ([facility]) [address] [facility], [place], [address], 07/29/2024 08:22:50 07/28/20 24 07/29/2024 CBC, PLATE LET, NO DIFFE RENTI AL WBC 5.8 x10e3 /uL 3.4-10 .8 Not Available [facility] ([facility]) [address] [facility], [place], [address], 07/29/2024 08:22:51 07/28/20 24 07/29/2024 CBC, PLATE LET, NO DIFFE RENTI AL RBC 4.46 x10e6 /uL 3.77-5 .28 Not Available [facility] ([facility]) [address] [facility], [place], [address], 07/29/2024 08:22:51 07/28/20 24 07/29/2024 CBC, PLATE LET, NO DIFFE RENTI AL hemoglobin 12.8 g/dL 11.1-1 5.9 Not Available [facility] ([facility]) [address] [facility], [place], [address], 07/29/2024 08:22:51 07/28/20 24 07/29/2024 CBC, PLATE LET, NO DIFFE RENTI AL hematocrit 39.4 % 34.0-4 6.6 Not Available [facility] ([facility]) [address] [facility], [place], [address], 07/29/2024 08:22:51 07/28/20 24 07/29/2024 CBC, PLATE LET, NO DIFFE RENTI AL MCV 88 fL 79-97 Not Available [facility] ([facility]) [address] [facility], [place], [address], 07/29/2024 08:22:51 07/28/20 24 07/29/2024 CBC, PLATE LET, NO DIFFE RENTI AL MCH 28.7 pg 26.6-3 3.0 Not Available [facility] ([facility]) [address] [facility], [place], [address], 07/29/2024 08:22:51 07/28/20 24 07/29/2024 CBC, PLATE LET, NO DIFFE RENTI AL MCHC 32.5 g/dL 31.5-3 5.7 Not Available [facility] ([facility]) [address] [facility], [place], [address], 07/29/2024 08:22:51 07/28/20 24 07/29/2024 CBC, PLATE LET, NO DIFFE RENTI AL RDW 12.4 % 11.7-1 5.4 Not Available [facility] ([facility]) [address] [facility], [place], [address], 07/29/2024 08:22:51 07/28/20 24 07/29/2024 CBC, PLATE LET, NO DIFFE RENTI AL platelets 251 x10e3 /uL 150-45 0 Not Available [facility] ([facility]) [address] [facility], [place], [address], 07/29/2024 08:22:51 07/28/20 24 07/29/2024 VITAM IN D, 25-HY DROXY vitamin D, 25-hydroxy 27.2 NG/mL 30.0-1 00.0 below low normal Vitam in D defic iency has been defin ed by the Insti tute of Medic ine and an Endoc rine Socie ty pract ice guide line as a level of serum 25-OH vitam in D less than 20 ng/mL (1,2) . The Endoc rine Socie ty went on to furth er defin e vitam in D insuf ficie ncy as a level betwe en 21 and 29 ng/mL (2). 1. IOM (Inst itute of Medic ine). 2009. Dieta ry refer ence intak es for calci um and D. Landry linton [place]: The Natio nal [facility] [place] [facility] . 2. Padmini valentin MF, Sourav colvin [place], Juan J off-F sapna i SMALL, et al. Evalu ation , treat ment, and preve ntion of vitam in D defic iency : an Endoc rine Socie ty clini sirisha pract ice guide line. JCEM. 2010; 96(7) :1911 -30. Not Available [facility] ([facility]) [address] [facility], [place], [address], 07/29/2024 08:22:52 Result Notes None recorded. Problems Name Problem SNOMED Code Status Onset Date Resolution Date Notes Provider Name and Address Organization Details Recorded Time Body mass index 30+ - obesity 409666204 Active 2017 Tamika Kennedy APN, FNP-C Attn: Jocelin murillo,[address] [facility], [place], [address], [place] - [facility] 8 15:30:24 Obesity 587731135 Active 2022 Tamika Kennedy APN, FNP-C Attn: Jocelin murillo,[address] [facility], [place], [address], [place] 3 09:54:09 Anxiety 99170149 Active Tamika Kennedy APN, FNP-C Attn: Jocelin murillo,[address] [facility], [place], [address], [place] 6 10:43:30 Overweight 390841953 Active Tamika Kennedy APN, FNP-C Attn: Jocelin murillo,[address], [place], [address], [facility] 6 10:43:30 Vitamin D deficiency 96953357 Active 2016 Tamika Kennedy APN, FNP-C Attn: Jocelin murillo,[address] [facility], [place], [address], [facility] 7 09:45:49 Visual disturbance 36535602 Completed 201604/25/2022 Tamika Kennedy APN, FNP-C Attn: Jocelin murillo,[address], [place], [address], [facility] 2 11:29:17 Problem Notes None recorded. Procedures Surgical History Date Name Laterality Status Provider Name and Address Organization Details Recorded Time Dilation and Curettage completed Stacie Rincon MA [facility] 06/23/2020 15:46:52 Imaging Results None recorded. Procedure Notes None recorded. Medical Equipment None Reported. Allergies Allergen ID Allergen Name Allergen Category Reaction Reaction Severity Criticality Documentation Date Start Date Code Code System Note Provider Name and Address Organization Details Recorded Time [id number] cow milk allergeni c extract food,medi cation diarrhea Not available Not available 07/22/2015 38477 5 RxNorm Not Available Not Available Not Available Medications Name Sig Start Date Stop Date Status Note LastModified by Organization Details LastModified Time amoxicill in 500 mg capsule Take 1 capsule every 8 hours by oral route for 10 days. 02/06 completed Not Available Not Available Not Available paroxetin e 10 mg tablet TAKE 1 TABLET BY MOUTH EVERY DAY 06/25 completed Not Available Not Available Not Available Penlac 8 % topical solution APPLY TO THE AFFECTED AREA(S) BY TOPICAL ROUTE ONCE DAILY PREFERAB LY AT BEDTIME OR 8 HOURS BEFORE WASHING 04/11 completed Not Available Not Available Not Available azithromy ashley 250 mg tablet TAKE 2 TABLETS (500 MG) BY ORAL ROUTE ONCE DAILY FOR 1 DAY THEN 1 TABLET (250 MG) BY ORAL ROUTE ONCE DAILY FOR 4 DAYS 09/26 completed Not Available Not Available Not Available benzonata te 100 mg capsule Take 1 capsule 3 times a day by oral route as needed for 10 days. 02/06 completed Not Available Not Available Not Available methylpre dnisolone 4 mg tablets in a dose pack Take 1 dose pk by oral route. active Not Available Not Available No t Available fluticaso ne propionat e 50 mcg/actua tion nasal spray,[employer] [place] 1 spray twice a day by intranas al route. active Not Available Not Available No t Available Lessina 0.1 mg-20 mcg tablet 04/25 completed Not Available Not Available Not Available Nexplanon 68 mg subdermal implant active replaced in 06/12 Not Available Not Available Not Available Vitals Date Recorded Body height Provider Name an d Address Organization Details Last Updated DateTime 04/25/2022 157.48 cm Kisha Cotto [facility] 04/25/2022 11:12:45 Date Recorded Body mass index (BMI) Body weight Provider Name and Address Organization Details Last Updated DateTime 04/25/2022 31.8 kg/m2 17257.07 g Kisha Cotto [facility] 01/2022 11:12:51 Date Recorded Oxygen saturation Oxygen saturation in Arterial blood by Pulse oximetry Provider Name and Address Organization Details Last Updated DateTime 04/25/2022 98 % 98 % Kisha Cotto [facility] 04/25 11:12:55 Date Recorded Heart rate Provider Name an d Address Organization Details Last Updated DateTime 04/25/2022 90 /min Kisha Cotto [facility] 04/25/2022 11:13:00 Date Recorded Respiratory rate Provider Name a nd Address Organization Details Last Updated DateTime 04/25/2022 16 /min Kisha Cotto [facility] 04/25/2022 11:13:02 Date Recorded Body temperature Provider Name a nd Address Organization Details Last Updated DateTime 04/25/2022 97.5 [degF] Kisha Cotto [facility] 04/25/2022 11:13:05 Date Recorded Body height Provider Name an d Address Organization Details Last Updated DateTime 10/31/2022 157.48 cm Kisha Cotto [facility] 10/31/2022 09:32:10 Date Recorded Body mass index (BMI) Body weight Provider Name and Address Organization Details Last Updated DateTime 10/31/2022 32.4 kg/m2 91221.85 g Kisha Cotto [place] 09:32:18 Date Recorded Oxygen saturation Oxygen saturation in Arterial blood by Pulse oximetry Provider Name and Address Organization Details Last Updated DateTime 10/31/2022 98 % 98 % Kisha Cotto [place] 10/31 09:32:22 Date Recorded Heart rate Provider Name an d Address Organization Details Last Updated DateTime 10/31/2022 94 /min Kisha Allredte [place] 10/31/2022 09:32:23 Date Recorded Respiratory rate Provider Name a nd Address Organization Details Last Updated DateTime 10/31/2022 16 /min Kisha Cotto [place] 10/31/2022 09:32:28 Date Recorded Body temperature Provider Name a nd Address Organization Details Last Updated DateTime 10/31/2022 97.7 [degF] Kisha Cotto [place] 10/31/2022 09:32:31 Date Recorded Body height Provider Name an d Address Organization Details Last Updated DateTime 06/25/2023 157.48 cm Kisha Cotto [place] 2022 09:45:09 Date Recorded Body mass index (BMI) Body weight Provider Name and Address Organization Details Last Updated DateTime 06/25/2023 32.4 kg/m2 23594.85 g Kisha Cotto [place] 06/25/2023 09:45:16 Date Recorded Oxygen saturation Oxygen saturation in Arterial blood by Pulse oximetry Provider Name and Address Organization Details Last Updated DateTime 06/25/2023 98 % 98 % Kisha Cotto [place] 06/25/2023 09:45:18 Date Recorded Heart rate Provider Name an d Address Organization Details Last Updated DateTime 06/25/2023 98 /min Kisha Cotto [place] 2022 09:45:20 Date Recorded Respiratory rate Provider Name a nd Address Organization Details Last Updated DateTime 06/25/2023 16 /min Kisha Cotto [place] [facility] 06/25/2023 09:45:21 Date Recorded Body temperature Provider Name a nd Address Organization Details Last Updated DateTime 06/25/2023 98.4 [degF] ROSALINDA Mackenzie [facility] 06/25/2023 09:45:24 Date Recorded Body height Provider Name an d Address Organization Details Last Updated DateTime 07/09/2024 157.48 cm Noni Rojo [place] [facility] 07/09/20 17:14:33 Date Recorded Body mass index (BMI) Body weight Provider Name and Address Organization Details Last Updated DateTime 07/09/2024 32.2 kg/m2 23312.26 lidia Rojo [place] [facility] 07/09/2024 17:15:02 Date Recorded Oxygen saturation Oxygen saturation in Arterial blood by Pulse oximetry Provider Name and Address Organization Details Last Updated DateTime 07/09/2024 99 % 99 % Noni Rojo [place] [facility] 07/09/2024 17:15:08 Date Recorded Heart rate Provider Name an d Address Organization Details Last Updated DateTime 07/09/2024 88 /min Noni Rojo [place] [facility] 07/09/20 17:15:11 Date Recorded Respiratory rate Provider Name a nd Address Organization Details Last Updated DateTime 07/09/2024 14 /min Noni Rojo [place] [facility] 07/09/20 17:15:12 Date Recorded Body temperature Provider Name a nd Address Organization Details Last Updated DateTime 07/09/2024 97.5 [degF] NIKOLAI Torrez [place] 024 17:15:21 Date Recorded Body height Provider Name an d Address Organization Details Last Updated DateTime 08/06/2024 157.48 cm Noni Rojo [place] [facility] 08/06/20 16:17:32 Date Recorded Body mass index (BMI) Body weight Provider Name and Address Organization Details Last Updated DateTime 08/06/2024 33 kg/m2 79487.35 NIKOLAI Young [facility] 08/06/2024 16:21:25 Date Recorded Oxygen saturation Oxygen saturation in Arterial blood by Pulse oximetry Provider Name and Address Organization Details Last Updated DateTime 08/06/2024 98 % 98 % Noni Rojo MA [facility] 08/06/2024 16:21:30 Date Recorded Heart rate Provider Name an d Address Organization Details Last Updated DateTime 08/06/2024 94 /min Noni Rojo MA [facility] 08/06/20 24 16:21:34 Date Recorded Respiratory rate Provider Name a nd Address Organization Details Last Updated DateTime 08/06/2024 14 /min Noni Rojo MA [facility] 08/06/20 24 16:21:35 Date Recorded Body temperature Provider Name a nd Address Organization Details Last Updated DateTime 08/06/2024 97.3 [degF] Noni Rojo MA [facility] 024 16:21:43 Date Recorded Systolic blood pressure Diastolic blood pressure Provider Name and Address Organization Details Last Updated DateTime 04/25/2022 122 mm[Hg] 78 mm[Hg] Kisha Cotto [facility] 01/2022 11:18:18 Date Recorded Systolic blood pressure Diastolic blood pressure Provider Name and Address Organization Details Last Updated DateTime 10/31/2022 120 mm[Hg] 74 mm[Hg] Kisha Cotto [facility] 10/18 09:35:16 Date Recorded Systolic blood pressure Diastolic blood pressure Provider Name and Address Organization Details Last Updated DateTime 06/25/2023 114 mm[Hg] 78 mm[Hg] Kisha Cotto ROSALINDA [facility] 06/25/2023 09:48:54 Date Recorded Systolic blood pressure Diastolic blood pressure Provider Name and Address Organization Details Last Updated DateTime 07/09/2024 124 mm[Hg] 85 mm[Hg] Noni Rojo MA [facility] 07/09/2024 17:20:07 Date Recorded Systolic blood pressure Diastolic blood pressure Provider Name and Address Organization Details Last Updated DateTime 08/06/2024 127 mm[Hg] 85 mm[Hg] Noni Rojo MA [facility] 08/06/2024 16:21:05 Social History Question Answer Notes LastModified by Organizat ion Details LastModified Time Tobacco Smoking Status Never Smoker NIKOLAI Boyer, [facility] 07/22/2015 09:10:54 Do You Have An Advance Directive? No Information not available 10/14/2018 What Is Your Level Of Alcohol Consumption? Occasional Information not available 08/06/2024 Are You Blind Or Do You Have Difficulty Seeing? No Information not available 04/25/2022 What Is Your Level Of Caffeine Consumption? Moderate Tea Information not available 04/25/2022 How Much Tobacco Do You Chew? None Information not available 04/11/2017 In The 14 Days Before Symptom Onset, Have You Had Close Contact With A Laboratory-confir med COVID-19 While That Case Was Ill? No Information not available 06/23/2020 In The 14 Days Before Symptom Onset, Have You Had Close Contact With A Person Who Is Under Investigation For COVID-19 While That Person Was Ill? No Information not available 06/23/2020 Have You Been To An Area Known To Be High Risk For COVID-19? No Information not available 06/23/2020 Are You Currently Employed? Yes [email or web address] Information not available 04/25/2022 Are You Deaf Or Do You Have Serious Difficulty Hearing? No [email or web address] Information not available 04/25/2022 What Type Of Diet Are You Following? REGULAR Information not available 07/09/2024 Which Illicit Or Recreational Drugs Have You Used? None Information not available 04/11/2017 Do You Or Have You Ever Used E-cigarettes Or Vape? Never Used Electronic Cigarettes Information not available 06/23/2020 Education 4 Year College Informatio n not available 10/14/2018 What Is Your Occupation? [employer] Information not available 08/06/2024 Are There Any Guns Present In Your Home? Yes Information not available 10/14/2018 Hard Of Hearing Or Deaf In One Or Both Ears? No Information not available 04/11/2017 Legally Blind In One Or Both Eyes? No Information no t available 04/11/2017 Marital Status Informatio n not available 10/14/2018 What Was The Date Of Your Most Recent Tobacco Screening? 08/06/2024 Information not available 08/06/2024 How Many Children Do You Have? 2 [email or web address] Information not available 04/25/2022 Performs Monthly Self-breast Exam? Yes Information no t available 09/26/2016 What Is Your Relationship Status? Information not available 07/09/2024 Do You Use Your Seat Belt Or Car Seat Routinely? Yes [email or web address] Information not available 04/25/2022 Seat Belts Used Routinely Yes Information not available 10/14/2018 Are You Sexually Active? Yes [email or web address] Information not available 04/25/2022 Smoke Alarm In Home Yes Information not available 10/14/2018 Do You Have Smoke And Carbon Monoxide Detectors In Your Home? Yes [email or web address] Information not available 04/25/2022 Are You Passively Exposed To Smoke? No [email or web address] Information no t available 04/25/2022 Do You Or Have You Ever Used Smokeless Tobacco? Never Used Smokeless Tobacco Information not available 06/23/2020 How Much Tobacco Do You Smoke? No [email or web address] Information not available 07/22/2015 General Stress Level Medium [email or web address] Information not available 07/22/2015 Do You Feel Stressed (tense, Restless, Nervous, Or Anxious, Or Unable To Sleep At Night)? [id number] Information not available 08/06/2024 Do You Use Any Illicit Or Recreational Drugs? No [email or web address] Information not available 04/25/2022 Do You Use Sunscreen Routinely? No Information not available 10/14/2018 Has Tobacco Cessation Counseling Been Provided? Yes [email or web address] Information not available 06/25/2023 On What Date Was Tobacco Cessation Counseling Provided? 08/06/2024 Information not available 08/06/2024 Do You Or Have You Ever Used Any Other Forms Of Tobacco Or Nicotine? No [email or web address] Information not available 04/25/2022 Sex: Female Functional Status Question Answer Note LastModified by Organization D etails LastModified Time Are you able to care for yourself? Yes [email or web address] Information not available 04/25/2022 What is your exercise level? None steps Information not available 07/09/2024 Mental Status None recorded. Family History Relationship Description Onset Age of this Age Resolved Age Notes LastModified by Organization Details LastModified Time Mother Disorder of thyroid gland Not available 2015 10:14:57 Mother Hypertensive disorder Not available 2015 10:14:57 Father Malignant tumor of pancreas [email or web address] Not available 04/25 11:15:53 Medical History Condition Response Coronary Artery Disease N Other N High Blood Pressure N Atrial Fibrillation N Thyroid Problems N Kidney or Bladder Problems N GI Problems N Depression N COPD N Blood Clots N Skin Problems N Anemia N Heart Attack ([place]) N Diabetes N Anxiety Disorder Y Muscle, Joint, or Bone Problems N Seizures/Epilepsy N Acid Reflux (GERD) N Cancer N Stroke N Asthma N Allergies N High Cholesterol N Hepatitis N Liver Disease N Headaches N Osteoporosis N Heart Failure N Gynecological History Statement/Question Response Flow Moderate Date of LMP 06/15/2024 On BCP's at Conception? N Menses Monthly No Duration of Flow (days) 2 Age at Menarche 12 Current Control Method Implant Age at First Child 34 LMP Approximate Obstetrics History GPAL:G 2 P 2 0 0 2 Type Value Full Term 2 Living 2 Total 2 Immunizations Vaccine Type Date Status Note Provider Nam e and Address Organization Details Recorded Time COVID-19, mRNA, LNP-S, PF, 30 mcg/0.3 mL dose 1 completed Tamika Kennedy LOCAL SALES ASSOCIATE, GEOTECHNICAL OPERATING ENGINEER-C Attn: Accounting,[address] [place], [place], [address] [place] [address], [facility] - [place] 04/25/2022 11:24:12 COVID-19, mRNA, LNP-S, PF, 30 mcg/0.3 mL dose 1 completed Tamika Kennedy LOCAL SALES ASSOCIATE, GEOTECHNICAL OPERATING ENGINEER-C Attn: [employer]ing,[address] [place], [place], [address] [place] [address], [facility] - [facility] 04/25/2022 11:24:12 Tdap 1 completed Tamika Kennedy LOCAL SALES ASSOCIATE, GEOTECHNICAL OPERATING ENGINEER-C Attn: Accounting,[address] [place], [place], [address] [place] [address], [facility] - [facility] 04/25/2022 11:24:11 Rho(D)-IG 9 completed Tamika Kennedy, LOCAL SALES ASSOCIATE, GEOTECHNICAL OPERATING ENGINEER-C Attn: Accounting,[address] [facility], [place], [address] [place] [address], [facility] 04/25/2022 11:24:12 Influenza, split virus, quadrivalent, PF 1 completed Tamika Kennedy, LOCAL SALES ASSOCIATE, GEOTECHNICAL OPERATING ENGINEER-C Attn: Accounting,[address] [facility], [place], [address] [place] [address], [facility] 04/25/2022 11:24:12 Tdap 0 completed Tamika Kennedy, LOCAL SALES ASSOCIATE, GEOTECHNICAL OPERATING ENGINEER-C Attn: Accounting,[address] [facility], [place], [place], [address] [place] [address], [facility] 04/25/2022 11:24:12 COVID-19, mRNA, LNP-S, PF, 30 mcg/0.3 mL dose, huey-sucrose 2 completed Tamika Kennedy, LOCAL SALES ASSOCIATE, GEOTECHNICAL OPERATING ENGINEER-C Attn: Accounting,[address] [facility], [place], [place], [address] [place] [address], [facility] 04/25/2022 11:24:12 Influenza, MDCK, quadrivalent, PF 9 completed Tamika Kennedy, LOCAL SALES ASSOCIATE, GEOTECHNICAL OPERATING ENGINEER-C Attn: Accounting,[address] [facility], [place], [place], [address] [place] [address], [facility] 04/25/2022 11:24:12 Influenza, MDCK, quadrivalent, PF 2 completed Tamika Kennedy, LOCAL SALES ASSOCIATE, GEOTECHNICAL OPERATING ENGINEER-C Attn: Accounting,[address] [facility], [place], [place], [address] [place] [address], [facility] 10/31/2022 09:40:11 COVID-19, mRNA, LNP-S, bivalent, PF, 30 mcg/0.3 mL dose 3 completed Tamika Kennedy, LOCAL SALES ASSOCIATE, GEOTECHNICAL OPERATING ENGINEER-C Attn: Accounting,[address] [facility], [place], [place], [address] [place] [address], [facility] 06/25/2023 09:59:54 Influenza, split virus, trivalent, PF 4 completed Tamika Kennedy, LOCAL SALES ASSOCIATE, GEOTECHNICAL OPERATING ENGINEER-C Attn: Accounting,[address] [facility], [place], [address], [facility] 07/09/2024 17:26:35 Influenza, split virus, quadrivalent, PF 0 completed Stacie Rincon MA null, [facility] 06/23/2020 16:48:11 Tdap 6 completed Tamika Kennedy APN, FNP-C Attn: Accounting,[address] [facility], [place], [address], [facility] 04/25/2022 11:24:12 Influenza, split virus, quadrivalent, preservative 3 completed ROSALINDA Mackenzie null, [facility] 06/25/2023 10:31:16 Past Encounters Encounter ID Performer Location Encounter Start Date Encounter Closed Date Diagnosis/Indication Diagnosis SNOMED-CT Code Diagnosis ICD10 Code Diagnosis Note [id number] Jackie Agarwal (Adult Med) [address] [place] [address] 07/22/2015 08:54:05 07/22/2015 16:10:20 Adult health examination 398764499 Z00.01 Encouraged well balanced meals, active lifestyle, and routine vision/den 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 Anxiety 73318712 F41.1 Active or passive immunization 716022311 Z23 tdap flu shot declined Overweight 420804872 E66 .3 Work on diet and [id number] Tamika Kennedy APN, FNP-C [place] (Adult Med) [address] [place] [address] 04/17/2016 09:58:49 04/17/2016 12:16:42 Anxiety 31324077 F41.9 Overweight 186269157 E66 .3 BMI 26.9 [id number] Tamika Kennedy APN, FNP-C [facility] (Adult Med) [address] [facility] [place] [address] 06/19/2016 09:12:56 06/19/2016 10:34:29 Anxiety 43367586 F41.9 Doing better on Paxil 10mg. Going to counseling once a week. Onychomyco sis of toenails 916964924 B35.1 Adult heal th examination 521786186 Z00.00 Overweight 712247369 E66 .3 BMI 26.9 [id number] Tamika Kennedy APN, FNP-C [place] (Adult Med) [address] [place] [address] 07/12/2016 13:45:46 07/12/2016 14:36:55 Upper respiratory infection 29399959 J06.9 Acute sinusitis 43775672 J01.90 [id number] Tamika Kennedy APN, FNP-C [place] (Adult Med) [address] [place] [address] 09/26/2016 09:08:12 09/26/2016 10:13:11 Overweight 875057617 E66.3 BMI 29.3.advis ed 1500 calorie low fat, low cholestero l, low carb diet, regular exercise and weight reduction. Anxiety 50130397 F41.9 Stable on Paxil 10 mg. Discussed weaning off at some point, pt not ready yet. Vitamin D deficiency 347 89627 E55.9 OTC vit D 3; 2000 units daily [id number] Tamika Kennedy APN, FNP-C [place] (Adult Med) [address] [facility] [place] [address] 04/11/2017 09:24:26 04/16/2017 16:04:45 Overweight 642975845 E66.3 advised 1500 calorie low fat, low cholestero l, low carb diet, regular exercise and weight reduction. Anxiety 34634920 F41.9 Stable on Paxil 10 mg. Discussed weaning off at some point, pt not ready yet. Vitamin D deficiency 347 54682 E55.9 OTC vit D 3; 2000 units daily Visual disturbance 15415 001 H53.9 left eye, sees black line , no pain, has never been to eye ; refer to ophthalmol pawan [id number] Tamika Kennedy APN, FNP-C [place] (Adult Med) [address] [place] [address] 10/15/2017 09:14:56 10/16/2017 16:09:30 Anxiety 27690930 F41.9 Stable on Paxil 10 mg. Discussed weaning off at some point, pt not ready yet. Overweight 611412895 E66 .3 advised low fat, low cholestero l, low carb diet, regular exercise and weight reduction. Vitamin D deficiency 347 54498 E55.9 OTC vit D 3; 2000 units daily; recheck lab Visual disturbance 51832 001 H53.9 left eye, sees black line , no pain, has never been to eye dr; refer to ophthalmol pawan, pt has referral paper, not sure if she needs it but plans to schedule Adult [facility] th examination 246794602 Z00.00 [id number] Tamika Kennedy APN, FNP-C [place] (Adult Med) [address] [place] [address] 10/25/2017 15:27:38 11/01/2017 17:23:12 Acute otitis media 6356083 H65.03 akanksha TM erythemato us and bulging, will treat with amox x 10 days Acute bronchitis 5682264 2 J20.9 rhonchi clearing with cough, tessalon perles TID prn [id number] Tamika Kennedy APN, FNP-C [place] (Adult Med) [address] [place] [address] 02/06/2018 08:27:52 02/07/2018 17:16:08 Easy bruising 221773010 R58 increased bruising over past 2 months since abx use, also change to menses, will start anemia work up, dwp also possible from paxil use. plan pending results Body mass index 30+ - obesity 981400393 Z68.39 advised low fat, low cholestero l, low carb diet, regular exercise and weight reduction. Vitamin D deficiency 347 62279 E55.9 OTC vit D 3; 2000 units daily; recheck lab Anxiety 37760256 F41.9 Stable on Paxil 10 mg. Discussed weaning off at some point, pt not ready yet. Will check urine as paxil may be cause of bruising. [id number] Tamika Kennedy APN, FNP-C [place] (Adult Med) [address] [place] [address] 04/15/2018 09:25:49 04/15/2018 14:00:07 Anxiety 13418139 F41.9 Stable on Paxil 10 mg. Discussed weaning off at some point, pt not ready yet. Overweight 235137041 E66 .3 advised low fat, low cholestero l, low carb diet, regular exercise and weight reduction. Cont on weight watchers. Has lost 12 pounds so far. Vitamin D deficiency 347 99086 E55.9 OTC vit D 3; 2000 units daily; [id number] Tamika Kennedy APN, FNP-C [place] (Adult Med) [address] [facility] [place] [address] 10/14/2018 15:20:08 10/15/2018 10:25:57 Anxiety 77833785 F41.9 Stable on Paxil 10 mg. Pt taking every other day now, Discussed weaning down 1 every 2 days, 4, days then 7 days, then 14. Overweight 647962396 E66 .3 advised low fat, low cholestero l, low carb diet, regular exercise and weight reduction. Vitamin D deficiency 347 88267 E55.9 OTC vit D 3; 2000 units daily; [id number] Tamika Kennedy APN, FNP-C [place] (Adult Med) [address] [facility] [place] [address] 06/23/2020 15:26:39 06/24/2020 15:04:46 Needs influenza immunization 099265161 Z28.3 Adult heal th examination 428121724 Z00.01 Encouraged routine COMPENSATION PROGRAMS MANAGER, vision, dental exams, well balanced diet. Overweight 712734500 E66 .3 advised low fat, low cholestero l, low carb diet, regular exercise and weight reduction. Tuberculos is screening 614476330 Z11.1 for day care form Vitamin D deficiency 347 33865 E55.9 low in past, check lab [id number] Tamika Kennedy APN, FNP-C [place] (Adult Med) [address] [facility] [place] [address] 04/25/2022 11:03:50 04/27/2022 08:02:11 Adult health examination 640620485 Z00.01 Encouraged routine COMPENSATION PROGRAMS MANAGER, vision, dental exams, well balanced diet. Body mass index 30+ - obesity 549415092 Z68.39 advised low fat, low cholestero l, low carb diet, regular exercise and weight reduction. Vitamin D deficiency 347 76389 E55.9 low in past, check lab Anxiety 91865924 F41.9 sees therapist, feels like she has ppd, used to take Paxil 10 mg, dwp and willing to resume trial Loss of scalp hair 74243 0004 L65.9 worse after , scalp hair loss [id number] Tamika Kennedy APN, FNP-C [place] (Adult Med) [address] [place] [address] 10/31/2022 09:26:34 11/07/2022 14:02:41 Obesity 704103030 E66.9 advised low fat, low cholestero l diet, regular exercise and weight reduction. Anxiety 15950677 F41.1 stable no SI or HI,cont Paxil 10 mg, Vitamin D deficiency 347 62964 E55.9 low in past [id number] Tamika Kenendy APN, FNP-C [place] (Adult Med) [address] [facility] [place] [address] 06/25/2023 09:37:33 06/27/2023 09:00:12 Anxiety 60828506 F41.1 stable no SI or HI,no longer on medication , feels fine now Obesity 701932504 E66.9 advised low fat, low cholestero l diet, regular exercise and weight reduction. Vitamin D deficiency 347 71924 E55.9 low in past Adult [facility] th examination 031806352 Z00.01 Encouraged routine COMPENSATION PROGRAMS MANAGER, vision, dental exams, well balanced diet. Administra tion of influenza vaccine 55861029 Z23 [id number] Tamika Kennedy APN, FNP-C [place] (Adult Med) [address] [facility] [place] [address] 07/09/2024 17:05:48 07/11/2024 11:59:58 Adult health examination 694210819 Z00.01 Encouraged routine COMPENSATION PROGRAMS MANAGER, vision, dental exams, well balanced diet. Obesity 821861483 E66.9 advised low fat, low cholestero l diet, regular exercise and weight reduction. Vitamin D deficiency 347 79982 E55.9 low in past [id number] Tamika Kennedy APN, FNP-C [place] (Adult Med) [address] [place] [address] 08/06/2024 16:12:22 08/07/2024 17:24:41 Dysfunction of eustachian tube 69011048 H68.013 bilateral TM's with middle ear fluid, start flonase, start medrol dose pack Health Concerns Section Related Observation LastModified by Organization Detai ls LastModified Time None Recorded Concern Status LastModified by Organization Details LastModified Time None Recorded Advance Directives Directive N: Payers Encounter Date Sequence Insurance Name Policy Number Policy Carrasquillo Covered Member ID Carrasquillo Member ID Guarantor Name 04/25/2022 2 *SELF PAY* Yannick ather Zuck 04/25/2022 1 [place] [address] Zuck [id number] Cori Zuck 10/31/2022 2 *SELF PAY* He ather Zuck 10/31/2022 1 [place] 112 [address] R Zuck [id number] Cori Zuck 06/25/2023 2 *SELF PAY* He ather Zuck 06/25/2023 1 [place] 112 Ven[address] R Zuck [id number] Cori Zuck 07/09/2024 2 *SELF PAY* He ather Zuck 07/09/2024 1 [place] 112 Ven[address] R Zuck [id number] Cori Zuck 08/06/2024 2 *SELF PAY* He ather Zuck 08/06/2024 1 [place] 112 [address] R Zuck [id number] Cori Zuck Notes Date Note Type Note Provider Name and Address Organization Details Recorded Time 04/25/2022 text/html Here for annual exam, also wants hormones checked. Pt c/o hair loss and anxiety. used to take paxil and would like to resume med Tamika Kennedy APN, AZUCENA Attn: Accounting,[address] [facility], [place], [address], [facility] 04/26/2022 14:00:37 10/31/2022 text/html here for follow up, taking paxil and it helps when she remembers, but has a hard time remembering it; Tamika Kennedy APN, FNP-C Attn: Accounting,[address], [place], [address], [place] [facility] 10/31/2022 10:00:31 06/25/2023 text/html Here for annual exam, no longer taking paxil Tamika Kennedy APN, FNP-C Attn: Accounting,[address] [facility], [place], [address], [place] [facility] 06/25/2023 10:16:32 07/09/2024 text/html here for annual examno complaints or concerns Tamika Kennedy APN, FNP-C Attn: Accounting,[address] [facility], [place], [address], [place] [facility] 07/09/2024 17:50:06 08/06/2024 text/html pt c/o dizzy spells for about 1 week seems to be worse in the mornings when she gets up but has also notice whenever she lays lay back and try to get up or down; started after she had a recent cold, Tamika Kennedy APN, AZUCENA Attn: Accounting,[address] [facility], [place], [address], [place] 08/06/2024 16:46:09 OBGyn Episode Ob Episode Information Episode Created Date Number of Fetuses Patient Bloodtype Patient rh Status Prepregnancy Weight lbs Domestic Partner Domestic Partner Phone Father Name Buffing And Polishing Wheel Repairer Status 04/25/20 22 1 CLOSED Fetus Data First Name Last Name Admitted to NICU Weight (g) Sex Living Outcome Pediatric Complications Fetus ID Race Codes Race Delivery Type M Full Term [id number] Giovanny Calculation Initial Giovanny Date Initial Exam Date Initial Exam Provider Initial Ultrasound Date Last Menstrual Period Date Ultra Sound Weeks Gestation 0 Eighteen To Twenty Week Giovanny Update Ultra Sound Date Fundal Height At Umbil Quickening Date Ultra Sound Latest Weeks Gestation Final Giovanny Confirmed By Final Giovanny Confirmed Date Final Giovanny Date Ultra Sound Latest Days Gestation 0 0 Menstrual History Last Menstrual Date Menses Monthly On Bcp Conception Prior Menses Frequency Hcg Plus Date Menarche Onset Age Delivery Information Delivery Date Delivery Type Labor Anesthesia Weeks Gestation Incision Type Labor Labor Length Hrs Delivered By Post Complications Tubal Sterilization Discharge Date Comments Discharge Information Feeding Method Contraceptive Method Maternal HG B and HCT Levels Ob Episode Information Episode Created Date Number of Fetuses Patient Bloodtype Patient rh Status Prepregnancy Weight lbs Domestic Partner Domestic Partner Phone Father Name Buffing And Polishing Wheel Repairer Status 06/23/20 20 1 CLOSED Fetus Data First Name Last Name Admitted to NICU Weight (g) Sex Living Outcome Pediatric Complications Fetus ID Race Codes Race Delivery Type F Full Term [id number] Giovanny Calculation Initial Giovanny Date Initial Exam Date Initial Exam Provider Initial Ultrasound Date Last Menstrual Period Date Ultra Sound Weeks Gestation 0 Eighteen To Twenty Week Giovanny Update Ultra Sound Date Fundal Height At Umbil Quickening Date Ultra Sound Latest Weeks Gestation Final Giovanny Confirmed By Final Giovanny Confirmed Date Final Giovanny Date Ultra Sound Latest Days Gestation 0 0 Menstrual History Last Menstrual Date Menses Monthly On Bcp Conception Prior Menses Frequency Hcg Plus Date Menarche Onset Age Delivery Information Delivery Date Delivery Type Labor Anesthesia Weeks Gestation Incision Type Labor Labor Length Hrs Delivered By Post Complications Tubal Sterilization Discharge Date Comments 0 Alma Discharge Information Feeding Method Contraceptive Method Maternal HG B and HCT Levels
--- OUTSIDE RECORDS SUMMARY | 2024-09-12 04:53 | XMS_ITS | Referral Summary ---
Author Organization [facility] Address [address] [place] [address] Care Team Providers Care Bottom Presser Name Role Phone Tamika Abraham MAGDALENA-DATA INTEGRATION ARCHITECT Primary Care Provider [phone]- [phone] Source Comments [facility],non-owned Affiliates and Associated Physician Practices is amultiple site organization consisting of ambulatory clinics and hospital sitesin [place], [place], [place] and [place]. This disclosure is being madepursuant to the Care Everywhere program and may not contain all information available regarding this patient. Last updated 18.[facility] Allergies Active Allergy Reactions Criticality Noted Date Comments Milk-Related Compounds Unknown 04/13/2021 Active Problems Problem Noted Date Diagnosed Date AMA (advanced maternal age) multigravida 35+, second trimester 12/06/2020 Overview (12/06/2020): O-, Negative, Immune, Rpr-NR, HIV-NR, Hbsag-NR H/h/p : 12.4; 36.2; 241 NIPT-LOW RISK/ MALE Encounter for anatomic survey 12/06/2020 Social History Tobacco Use Types Packs/Day Years Used Date Smoking Tobacco: Never Assessed Sex and Gender Information Value Date Recorded Sex Assigned at Not on file Gender Identity Not on file Sexual Orientation Not on file Last Filed Vital Signs Vital Sign Reading Time Taken Comments Blood Pressure - - Pulse - - Temperature 36.1 ??C (97 ??F) 12/07/2020 8:16 AM CDT Respiratory Rate - - Oxygen Saturation - - Inhaled Oxygen Concentration - - Weight - - Height - - Body Mass Index - - Plan of Treatment Not on file Care Teams Bottom Presser Relationship Specialty Start Date End Date Tamika Abraham APRN-YANIQUE [address] [place] [id number] PCP - General 05/06/21
--- OUTSIDE RECORDS SUMMARY | 2024-09-12 04:53 | XMS_ITS | Patient Health Summary ---
Author Organization [facility] Address [address] [place] [address] Care Team Providers Care Solids Control Technician Name Role Phone Tamika Abraham MAGD[place]-COUNTY DIRECTOR Primary Care Provider [phone]- [phone] Note from [facility],non-owned Affiliates and Associated Physician Practices is amultiple site organization consisting of ambulatory clinics and hospital sitesin [place], [place], [place] and [place]. This disclosure is being madepursuant to the Care Everywhere program and may not contain all information available regarding this patient. Last updated 18.[facility] Allergies * Milk-Related Compounds(Unknown) Active Problems Problem Noted Date Diagnosed Date AMA (advanced maternal age) multigravida 35+, second trimester 12/06/2020 Encounter for anatomic survey 12/06/2020 Social History [...] - - Body Mass Index - - Procedures * BIOPHYSICAL PROFILE W NST(Performed 04/12/2021) Performed for AMA (advanced maternal age) multigravida 35+, second trimester (HCC) * SONOGRAM - COMPLETE(Performed 04/04/2021) Performed for AMA (advanced maternal age) multigravida 35+, second trimester (HCC), Encounter for anatomic survey ([facility]) * SONOGRAM - COMPLETE(Performed 12/07/2020) Performed for Encounter for anatomic survey ([facility]), AMA (advanced maternal age) multigravida 35+, second trimester ([facility]) Results * BIOPHYSICAL PROFILE W NST (04/12/2021 8:57 AM CDT) Anatomical Region Laterality Modality Other 04/12/2021 8:57 AM CDT Narrative 04/12/2021 6:56 PM CDT ? [facility] Maternal Medicine ? Maternal & Care Center ?PHONE: ??FAX: Pat. Name: ?CORI ROYAL. No: ?[id number] Study Date: ?? 04/12/2021 ??8:57am , Age: ? 1985, 35 Pregnancies: ?? 2, Para 1 Height: ? 62 in Weight: ? 162 lb LMP: ?07/27/2020 GA by LMP: ?37w0d GA by Base: ?? 37w0d ?? ROSAMARIA: 05/03/2021 GA Selected: ??37w0d (From [facility]) ROSAMARIA: ?05/03/2021 Referring MD: Terri Gallardo MD Electrical And Radio Mock Up Mechanic: ??Cuca Loaiza RDMS CPT4: ? 29379 BMI: ?29.63 Hist/Ind: ? Size > dates ?AMA-LR NIPT ?Polyhydramnios Heart Rate: 134 bpm Amniotic Fluid Index: 28.4cm (07.5-24.4)* Q1: 9.2cm ??Q2: 4.9cm ??Q3: 6.1cm ??Q4: 8.2cm ?? Biophysical Profile: 03/27 Breathin ?? Tone: 2 ?? Movement: ??2 ?? AFV: ??2 EVAL, PLACENTA Presentation: cephalic Placenta: posterior Heart Rate: 134 bpm Amniotic Fluid Volume: polyhydramnios CLINICAL SUMMARY Study Number: 3 ?? A single fetus is seen in cephalic presentation. ??The amniotic fluid volume is increased. ?? IMPRESSION: Single, live, intrauterine at 37w0d Amniotic fluid volume: polyhydramnios ?? Biophysical profile: Reassuring (03/27) ?? RECOMMEND: Continue weekly 8-point BPP ?? Repeat growth assessment in 3 weeks ?? Thank you for allowing us the opportunity to care for your patient. ?? Devon Arredondo MD <Electronic Signature> ??04/12/2021 06:56pm Terri Gallardo MD M ORDERABLES * SONOGRAM - COMPLETE (04/04/2021 7:36 AM CDT) Only the most recent of2 resultswithin the time period is included. Anatomical Region Laterality Modality Other 04/04/2021 7:36 AM CDT Narrative 04/04/2021 9:08 AM CDT ? [facility] Maternal Medicine ? Maternal & Care Center ?PHONE: ??FAX: Pat. Name: ?CORI ROYAL. No: ?[id number] Study Date: ?? 04/04/2021 ??7:36am , Age: ? 1985, 35 Pregnancies: ?? 2, Para 1 Height: ? 62 in Weight: ? 162 lb LMP: ?07/27/2020 GA by LMP: ?35w6d GA by Base: ?? 35w6d ?? ROSAMARIA: 05/03/2021 GA by US: ? 35w4d ?? ROSAMARIA: 05/05/2021 GA Selected: ??35w6d (LMP) ROSAMARIA: ?05/03/2021 Referring MD: Terri Gallardo MD Electrical And Radio Mock Up Mechanic: ??Jackie Martines, DONTAE, RDCS CPT4: ? 69001,10392 BMI: ?29.63 Hist/Ind: ? Size > dates ?AMA-LR NIPT MEASUREMENTS & AGE ? GROWTH EVALUATION Measurement ??GA ? Range ? Srce %for GA Ratios ----- ---- ------- BPD ??8.9 cm 35w6d (26p5h-02x9e) Hadl BPD 57% FL/BPD 0.77 (0.71 - 0.87) HC ??31.9 cm 36w0d (60v9a-83w0u) Hadl HC ??21% FL/AC ??0.20 (0.20 - 0.24* AC ??34.2 cm 38w1d (16c2q-04g7t) Hadl AC ??97% HC/AC ??0.93 (0.93 - 1.12) FL ?? 6.8 cm 35w1d (87r9e-22p7i) Hadl FL ??24% CI ? 0.80 (0.70 - 0.86) HL ?? 6.1 cm 35w1d (15q3w-01c7c) Rosendo HL ??37% GA for sonogram 35w4d (79o9e-05k9o) ?? Weight Estimate: based on (BPD,HC,AC,FL) [place] ?Weight: 3068 gm (2620-3515gm) Had ? : 6lbs, 12oz ? Normal: 2791 gm (2094- 3489gm) Had ? Wt% ? 78% for 35w6d Heart Rate: 127 bpm Amniotic Fluid Index: 27.1cm (07.7-24.9)* Q1: 8.6cm ??Q2: 6.3cm ??Q3: 5.7cm ??Q4: 6.5cm ?? Biophysical Profile: 03/27 Breathin ?? Tone: 2 ?? Movement: ??2 ?? AFV: ??2 EVAL, PLACENTA Presentation: cephalic Placenta: posterior Heart Rate: 127 bpm Amniotic Fluid Volume: polyhydramnios CLINICAL SUMMARY Study Number: 2 ?? A single fetus is seen in cephalic presentation. ??The measurements today are consistent with greater than expected growth. ??The ROSAMARIA is based on LMP. ??The amniotic fluid volume is increased. ?? IMPRESSION: Single, live, intrauterine at 35w6d ?? Amniotic fluid volume: polyhydramnios ?? Biophysical profile: Reassuring ?? size is large for gestational age RECOMMEND: Continue weekly testing 8 point BPP, NST only if indicated Thank you for allowing us the opportunity to care for your patient. ?? Devon Arredondo MD <Electronic Signature> ??04/04/2021 09:08am Terri Gallardo MD M ORDERABLES Care Teams Solids Control Technician Relationship Specialty Start Date End Date Tamika Abraham APRN-COUNTY DIRECTOR [address] [place] [address] PCP - General 05/06/21
--- OUTSIDE RECORDS SUMMARY | 2024-09-12 04:53 | XMS_ITS | Clinical Summary ---
Author Organization [facility] Address [address] [place] [address] Care Team Providers Care Receivable Manager Name Role Phone Tamika Abraham [employer]OSPECTOR Primary Care Provider [phone] [facility],non-owned Affiliates and Associated Physician Practices is amultiple site organization consisting of ambulatory clinics and hospital sitesin [place], [place] and [place]. This disclosure is being madepursuant to the Care Everywhere program and may not contain all information available regarding this patient. Last updated 18.[facility] Allergies Active Allergy Reactions Criticality Noted Date [...] Mass Index - - Plan of Treatment Health Maintenance Due Date Last Done Comments PAP SMEAR 1985 HIV SCREENING 2000 HEPATITIS C SCREENING 09/01/2003 DTAP/TDAP/TD VACCINES (1 - Tdap) 2004 HEPATITIS B VACCINE (1 of 3 - 19+ 3-dose series) 2004 COVID-19 VACCINE (1 - 2023-2 5 season) 2024 INFLUENZA VACCINE (#1) 2024 0, 06/28/2019 DEPRESSION SCREENING 08/20/2024 ZOSTER VACCINE (1 of 2) 2035 HIB VACCINE Aged Out No longer eligi ble based on patient's age to complete this topic HPV VACCINE Aged Out No longer eligi ble based on patient's age to complete this topic MENINGOCOCCAL (Group B) VACCINE Aged Out No longer eligible b ased on patient's age to complete this topic MENINGOCOCCAL VACCINE Aged Out No brian joselin eligible based on patient's age to complete this topic PNEUMOCOCCAL VACCINE Aged Out No long er eligible based on patient's age to complete this topic Care Teams Receivable Manager Relationship Specialty Start Date End Date Tamika Abraham APRN-YANIQUE [address] [place] [address] PCP - General 05/06/21
--- OUTSIDE RECORDS SUMMARY | 2024-09-12 04:53 | XMS_ITS | Data Portability ---
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 Patient will come back in a year unless there are new symptoms. [email or web address] Not available 05/05/2024 10:57:18 Plan of Treatment Reminders Order Date Submit Date Provider Last Modified By Organization Details Last Modified Time Details Appointments None recorded. Lab None recorded. Referral None recorded. Procedures None recorded. Surgeries None recorded. Imaging US, pelvis, complete 2021 022 [email or web address] [facility], [address], [place], [address], 15:15:28 US, pelvis 2021 022 [email or web address], [address], [place], [address], 20:00:04 US, transvagina l 2021 022 [email or web address] [facility], [address], [place], [address], 20:00:04 Medication Orders Nexplanon 68 mg subdermal implant 2023 024 [email or web address] Not available 4 11:55:36 Patient TargetsNo targets recorded. Patient InstructionsNo instructions recorded. Reason for Referral None Reported. Results Created Date Observation Date Name Description Value Unit Range Abnormal Flag Note LastModifiedBy Organization Detail LastModifiedTime 01/19/20 22 01/18/2022 URINA LYSIS , WITH MICRO SCOPI C, REFLE X CULTU RE color, urine Yellow colorl ess, light yellow , yellow , dark yellow , straw Not Available [facility] (Lab) [address], [place], [address], 01/19/2022 03:45:24 01/19/20 22 01/18/2022 URINA LYSIS , WITH MICRO SCOPI C, REFLE X CULTU RE clarity, urine Slight ly Cloudy abnormal Not Available [facility] (Lab) [address] [place], [address], 01/19/2022 03:45:24 01/19/20 22 01/18/2022 URINA LYSIS , WITH MICRO SCOPI C, REFLE X CULTU RE glucose, urine Negati ve mg/dL negati ve Not Available [facility] (Lab) [address] [place], [address], 01/19/2022 03:45:24 01/19/20 22 01/18/2022 URINA LYSIS , WITH MICRO SCOPI C, REFLE X CULTU RE bilirubin, urine Negati ve mg/dL negati ve Not Available [facility] (Lab) [address] [place], [address], 01/19/2022 03:45:24 01/19/20 22 01/18/2022 URINA LYSIS , WITH MICRO SCOPI C, REFLE X CULTU RE ketones, urine Negati ve mg/dL negati ve Not Available [facility] (Lab) [address] [place], [address], 01/19/2022 03:45:24 01/19/20 22 01/18/2022 URINA LYSIS , WITH MICRO SCOPI C, REFLE X CULTU RE pH, urine 6.0 . 5.0-9. 0 Not Available [facility] (Lab) [address] [facility], [place], [address], 01/19/2022 03:45:24 01/19/20 22 01/18/2022 URINA LYSIS , WITH MICRO SCOPI C, REFLE X CULTU RE specific gravity, urine 1.017 . 1.001- 1.035 Not Available [facility] (Lab) [address], [place], [address], 01/19/2022 03:45:24 01/19/20 22 01/18/2022 URINA LYSIS , WITH MICRO SCOPI C, REFLE X CULTU RE blood, urine Negati ve negati ve Not Available [facility] (Lab) [address] [facility], [place], [address], 01/19/2022 03:45:24 01/19/20 22 01/18/2022 URINA LYSIS , WITH MICRO SCOPI C, REFLE X CULTU RE protein, UA Negati ve mg/dL negati ve Not Available [facility] (Lab) [address] [place], [address], 01/19/2022 03:45:24 01/19/20 22 01/18/2022 URINA LYSIS , WITH MICRO SCOPI C, REFLE X CULTU RE urobilinogen , urine <2.0 mg/dL <2.0 Not Available [facility] (Lab) [address] [place], [address], 01/19/2022 03:45:24 01/19/20 22 01/18/2022 URINA LYSIS , WITH MICRO SCOPI C, REFLE X CULTU RE nitrite, urine Negati ve negati ve Not Available [facility] (Lab) [address] [place], [address], 01/19/2022 03:45:24 01/19/20 22 01/18/2022 URINA LYSIS , WITH MICRO SCOPI C, REFLE X CULTU RE leukocyte esterase, urine Negati ve odilia/u L negati ve Not Available [facility] (Lab) [address] [facility], [place], [address], 01/19/2022 03:45:24 01/19/20 22 01/18/2022 URINA LYSIS , WITH MICRO SCOPI C, REFLE X CULTU RE WBC, urine 0-5 /hpf none, 0-5 Not Available [facility] (Lab) [address], [place], [address], 01/19/2022 03:45:24 01/19/20 22 01/18/2022 URINA LYSIS , WITH MICRO SCOPI C, REFLE X CULTU RE RBC, urine 0-2 /hpf none, 0-2 Not Available [facility] (Lab) [address], [place], [address], 01/19/2022 03:45:24 01/19/20 22 01/18/2022 URINA LYSIS , WITH MICRO SCOPI C, REFLE X CULTU RE bacteria, urine None /hpf none Not Available [facility] (Lab) [address], [place], [address], 01/19/2022 03:45:24 01/19/20 22 01/18/2022 URINA LYSIS , WITH MICRO SCOPI C, REFLE X CULTU RE squamous epithelial cells, urine Modera te /hpf none abnormal Not Available [facility] (Lab) [address], [place], [address], 01/19/2022 03:45:24 01/19/20 22 01/18/2022 URINA LYSIS , WITH MICRO SCOPI C, REFLE X CULTU RE non-squamous epi, urine Trace /hpf none abnormal Not Available [facility] (Lab) [address] [place], [address], 01/19/2022 03:45:24 01/19/20 22 01/18/2022 URINA LYSIS , WITH MICRO SCOPI C, REFLE X CULTU RE mucus, urine Few /hpf none, trace, few Urine Cultu re not perfo rmed per refle x elsa col. Not Available [facility] (Lab) [address], [place], [address], 01/19/2022 03:45:24 05/05/20 24 05/05/2024 IMAGE GUIDE D PAP AND HPV REGAR DLESS image guided Pap, HPV regardless of Pap result SEE RESULT S BELOW CASE REPOR T: Cytol ogy Gynec ologi sirisha Repor t Case: [id number] Autho emery murillo Provi ekaterina: Maurice Villa MD Colle cted: 05/05 1156 Order ing Locat ion: [place] [facility] Recei kimani: 05/06 0806 First Scree n: Nancy Kauffman, CT Speci men: Quinten garcía Pap - Image d, Cervi x STATE MENT OF ADEQU ACY: Satis facto ry for evalu ation Trans forma tion zone compo nent prese nt Parti ally obscu ring blood prese nt ----- ----- ----- ----- ----- ----- ----- ----- ----- ----- ----- ----- ----- ----- ----- ----- ----- ---- FINAL DIAGN OSIS: Negat poli for Intra epith elial Chelsea colbert or Zeus parks (NIL) . Elect magdiel steele d by Nancy Kauffman, CT on 2023 at 11:16 AM ----- ----- ----- ----- ----- ----- ----- ----- ----- ----- ----- ----- ----- ----- ----- ----- ----- ---- HPV RESUL TS: HPV mRNA E6/E7 : No HPV mRNA Detec maria alejandra NOTE: This high risk HPV mRNA assay detec ts fourt een high- risk HPV types (16, 18, 31, 33, 35, 39, 45, 51, 52, 56, 58, 59, 66, 68) witho ut diffe renti ation . COMME NT: This speci men was revie wed by a Cytot echno logis t and/o r Patho logis t (as indic ated in this repor t) after evalu ation using the Thinp rep Imagi ng Syste m. CLINI SIRISHA INFOR MATIO N: Menst rual Statu s: LMP (if appli cable ): Clini sirisha Histo ry/Pr eviou s Pap: Type of Neopl charan (if appli cable ): Signi fican t Clini sirisha Findi ngs: Other Histo ry: Hormo tony (if appli cable ): PAP EDUCA STONE L NOTE: The Pap Test is a scree ricky test with an inher ent false negat poli rate. Liqui d-bas ed sampl ing may decre ase, but will not elimi keely, false negat poli resul ts. A negat poli resul t does not precl ude the prese nce and/o r devel opmen t of disea se, since the prese nce of abnor mal cells in the sampl e depen ds on the locat ion of the lesio n and sampl ing techn ique. Hortensia nued regul ar scree ricky is the best metho d of cance r preve ntion . If repor maria alejandra cytol ogic findi ng do not corre late with physi sirisha and/o r histo rical findi ngs, furth er inves tigat ion is recom errol d, as clini marquis matt nted. Not Available [facility] (Lab) [address], [place], [address], 05/12/2024 12:20:19 01/12/20 22 01/11/2022 , perry kee No observ ation record ed. [email or web address] [facility] [address], [place], [address], 01/11/2022 18:40:07 01/12/20 22 01/11/2022 US, trans vagin al No observ ation record ed. [email or web address] [facility] [address], [place], [address], 01/11/2022 18:40:16 01/12/20 22 01/11/2022 US, pelvi s No observ ation record ed. [facility] [address], [place], [address], 01/18/2022 10:10:21 Result Notes None recorded. Procedures Surgical History Date Name Laterality Status Provider Name and Address Organization Details Recorded Time Nexplanon Removal completed SOLOMON SALDAÑA MD [address], [place], [address], [place] [facility] 06/19/2024 01:05:27 Date of Last Pap Smear completed Julia Kumar [facility] 06/16/2024 11:34:32 Imaging Results Imaging Date Name Status LastModified by Organization Details LastModified Time 01/11/2022 US, pelvis completed [email or web address] [facility] [address], [place], [address], 01/11/2022 18:40:07 01/11/2022 US, transvaginal completed [email or web address] [facility] [address], [place], [address], 01/11/2022 18:40:16 01/11/2022 US, pelvis completed [facility] [address], [place], [address], 01/18/2022 10:10:21 Procedure Notes None recorded. Medical Equipment None Reported. Allergies Allergen ID Allergen Name Allergen Category Reaction Reaction Severity Criticality Documentation Date Start Date Code Code System Note Provider Name and Address Organization Details Recorded Time 50728 cow milk allergeni c extract food,medi cation Not available Not available Not available 08/06/2020 95850 5 RxNorm Comme nt: [facility]; Not Available [facility] 0 14:24:36 Medications Name Sig Start Date Stop Date Status Note LastModified by Organization Details LastModified Time Aviane 0.1 mg-20 mcg tablet Take 1 tablet every day by oral route. 01/10 completed Not Available Not Available Not Available nifedipin e 20 mg capsule take 1 capsule by oral route 3 times every day 01/10 completed Prescrib ed Elsewher e: Yes Loca tion: [facility] odify By: [email or web address] Encount er DateTime : 09/18/19 10:45:00 AM Not Available Not Available Not Available Macrobid 100 mg capsule take 1 capsule by oral route every 12 hours with food 05/27 completed Prescrib ed Elsewher e: No Locat ion: [facility] By: [email or web address] Encount er DateTime : 05/02/20 11:56:34 AM Not Available Not Available Not Available Vitamin D2 1,250 mcg (50,000 unit) capsule take 1 capsule by oral route every week 01/10 completed Prescrib ed Elsewher e: Yes Loca tion: [facility] By: [email or web address] Encounte r DateTime : 03/26/20 03:30:00 PM Not Available Not Available Not Available 01/10 completed Prescrib ed Elsewher e: Yes Loca tion: [facility]hames rid[facility] By: [email or web address] Encounte r DateTime : 03/26/20 19 03:30:00 PM Not Available Not Available Not Available Nexplanon 68 mg subdermal implant Inject 1 implant by subcutan eous route. 2023 active Not Available Not Available Not Avai lable Vitals Date Recorded Body height Body mass index (BMI) Body weight Systolic blood pressure Diastolic blood pressure Provider Name and Address Organization Details Last Updated DateTime 01/10/2022 157.48 cm 30.9 kg/m2 72714.39 g 120 mm[Hg] 84 mm[Hg] [facility] 2 10:13:03 Date Recorded Body height Body mass index (BMI) Body weight Systolic blood pressure Diastolic blood pressure Provider Name and Address Organization Details Last Updated DateTime 01/18/2022 157.48 cm 31.2 kg/m2 47078.14 g 123 mm[Hg] 71 mm[Hg] Kim [facility] 2 09:30:55 Date Recorded Body height Body mass index (BMI) Body weight Systolic blood pressure Diastolic blood pressure Provider Name and Address Organization Details Last Updated DateTime 05/05/2024 157.48 cm 30.5 kg/m2 47908.93 g 120 mm[Hg] 76 mm[Hg] [facility] 4 10:59:56 Date Recorded Body height Body mass index (BMI) Body weight Systolic blood pressure Diastolic blood pressure Provider Name and Address Organization Details Last Updated DateTime 06/16/2024 157.48 cm 31.1 kg/m2 31694.7 g 144 mm[Hg] 84 mm[Hg] [facility] 4 11:33:56 Social History Question Answer Notes LastModified by Organizat ion Details LastModified Time Tobacco Smoking Status Never Smoker Kim [facility] 01/10/2022 09:13:55 Do You Have An Advance Directive? No [email or web address] Information not available 06/16/2024 What Is Your Level Of Alcohol Consumption? Occasional Information not available 01/10/2022 Are You Blind Or Do You Have Difficulty Seeing? No Information not available 01/10/2022 What Is Your Level Of Caffeine Consumption? Moderate [email or web address] Information not available 06/16/2024 How Much Tobacco Do You Chew? None [email or web address] Information not available 06/16/2024 In The 14 Days Before Symptom Onset, Have You Had Close [facility] While That Case Was Ill? No [email or web address] Information not available 05/05/2024 In The 14 Days Before Symptom Onset, Have You Had Close Contact With A Person Who Is Under Investigation For COVID-19 While That Person Was Ill? No [email or web address] Information not available 05/05/2024 Have You Been To An Area Known To Be High Risk For COVID-19? No [email or web address] Information not available 05/05/2024 Are You Deaf Or Do You Have Serious Difficulty Hearing? No Information not available 01/10/2022 What Type Of Diet Are You Following? REGULAR Information not available 01/10/2022 What Is The Highest Grade Or Level Of School You Have Completed Or The Highest Degree You Have Received? 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 Yes Information not available 06/16/2024 Do You Use Protection During Sex? No Information not available 06/16/2024 Do You Use Your Seat Belt Or Car Seat Routinely? Yes Information not available 06/16/2024 Do You Have Smoke And Carbon Monoxide Detectors In Your Home? Yes [email or web address] Information not available 06/16/2024 How Much Tobacco Do You Smoke? No [email or web address] Information not available 06/16/2024 Do You Feel Stressed (tense, Restless, Nervous, Or Anxious, Or Unable To Sleep At Night)? [id number] [email or web address] Information not available 06/16/2024 Do You Use Any Illicit Or Recreational Drugs? No [email or web address] Information not available 06/16/2024 Do You Use Sunscreen Routinely? Yes Information not available 06/16/2024 Have You Used IV Drugs? No Information not available 06/16/2024 Sex: Unknown Functional Status Question Answer Note LastModified by Organizat ion Details LastModified Time Do you have difficulty walking or climbing stairs? No Information not available 01/10/2022 Are you able to walk? [email or web address] Information not available 01/10/2022 Are you able to care for yourself? Yes Information not available 01/10/2022 Do you have difficulty dressing or bathing? No Information not available 01/10/2022 What is your exercise level? Occasional Information not available 01/10/2022 Mental Status None recorded. Family History Relationship Description Onset Age of this Age Resolved Age Notes LastModified by Organization Details LastModified Time Maternal Aunt Diabetes mellitus Not available 2021 09:13:05 Mother Hypertensive disorder Not available 2021 09:13:12 Paternal Grandmother Malignant tumor of colon Not available 2021 09:13:23 Sister Malignant tumor of cervix Not available 2021 09:13:29 Medical History No medical history recorded. Gynecological History Statement/Question Response Abnormal Pap N Flow Light Date of LMP 06/15/2024 On BCP's at Conception? N N Was last menstrual period normal N STIs/STDs N HPV Vaccine N Duration of Flow (days) 2 Current Control Method Implant Age at First Child 34 Are cycles usually normal N Sexually Active? Y Implant Menses Monthly N Age of first menstrual cycle 12 Date of Last Pap Smear 05/05/2024 Sexual Problems? N Desired Control Method Implant LMP Definite N Obstetrics History GPAL:G 2 P 2 0 0 2 Type Value Full Term 2 Living 2 Total 2 Past Encounters Encounter ID Performer Location Encounter Start Date Encounter Closed Date Diagnosis/Indication Diagnosis SNOMED-CT Code Diagnosis ICD10 Code Diagnosis Note [id number] VAUGHN Salas [facility] [address] [address] 01/10/2022 09:47:56 01/10/2022 11:10:24 Pain in pelvis 33553780 R10.2 We discussed need for pelvic u/sPatient declined STI testingHas noticed some mood changes since getting the nexplanon placed, had it placed about 8 months ago when she was .She will have one week of the month that she has depressive symptoms, feeling down. No thoughts of harming herself or other.We discussed options including counseling , medication , different form of BC, etc.She would like to just track when it happens and hold off on any medication for now.Red flag symptoms discussedR TC for u/s and u/s f/u Time spent with the patient was 30 minutes [id number] Leydi Fields [facility] [address] [address] 01/11/2022 17:20:50 01/11/2022 18:19:11 Pain in pelvis 79766780 R10.2 [id number] Jordana HunterVAUGHN [facility] [address] [address] 01/18/2022 09:23:40 01/18/2022 10:03:40 Pain in pelvis 10590480 R10.2 Patient with intermitte nt right and left sided pelvic pain x 1 monthThe pain is improvingP elvic u/s : Normal with left sided 2.4-2.7cm ovarian cystWe discussed ovarian cyst and this is likely causing some of her left sided pain. Risk/sympt oms of torsion discussed and when to seek medical care.Would like her to f/u with her PCP as well, as she states she has a long hx of bowel movements being too frequent.S he feels the pain in the right side when urinating at times, will send off a UA/culture .She will monitor the pain for now, patient to call the office if she still is having pain in 6 weeks and a repeat u/s can be done.We discussed repeat u/s does not have to be done given cyst <3cm, can be done if pain continuesR TC as she is due for [employer] Time spent with the patient was 30 minutes [id number] SOLOMON SALDAÑA MD [facility] [address] [address] 05/05/2024 10:52:06 05/05/2024 11:55:54 Gynecologic examination 17311828 Z01.419 Z11.51 Well woman care- Cervical cancer screening: Pap smear obtained today, will follow up on the results with the patient as they become available- Breast cancer screening: mammogram not indicated- Colon cancer screening: does not qualify- STD testing: declined- hereditary cancer screening: does not qualify for testing [id number] SOLOMON SALDAÑA MD [facility] [address] [address] 06/16/2024 11:01:09 06/20/2024 17:53:37 Contraception care 029635364 Z30.40 - Nexplanon removed and reinserted without issue- Patient tolerated well- due for removal 05/2027- rtc 04/2025 for WWE Health Concerns Section Related Observation LastModified by Organization Detai ls LastModified Time None Recorded Concern Status LastModified by Organization Details LastModified Time None Recorded Advance Directives Directive N: Payers Encounter Date Sequence Insurance Name Policy Number Policy Carrasquillo Covered Member ID Carrasquillo Member ID Guarantor Name 01/10/2022 1 [employer] 112 Venkat R Zbrigida [id number] Cori Zuck 01/11/2022 1 [employer] 112 Venkat R Zbrigida [id number] Cori Zuck 01/18/2022 1 [employer] 112 Venkat R Zuck [id number] Cori Zuck 05/05/2024 1 [employer] 112 Venkat R Zbrigida [id number] Cori Zuck 06/16/2024 1 [employer] 112 Venkat R Zbrigida [id number] Cori Zbrigida Notes Date Note Type Note Provider Name and Address Organization Details Recorded Time 01/10/2022 text/html Here for right sided abdominal pain x 1 month. The pain comes and goes, it is a dull ache. Pain is located in the lower right side. She has days where she does not feel the pain. Is not any worse with intercourse. Notices it more with activity. Does not need to take any medication for the pain.Uses nexplanon for controlNormal daily bowel movementsNo urinary symptoms VAUGHN Salas [address], [place], [address], [facility] 01/10/2022 10:57:01 01/18/2022 text/html Here for u/s f/u appointment. Right sided pelvic pain x [address] [place], [address], [facility] 01/18/2022 09:47:03 05/05/2024 text/html Presents today f or her annual well-woman exam. Denies abnormal vaginal discharge. She is sexually active and denies dyspareunia. She is using Nexplanon for contraception. She reports regular periods with Nexplanon previously, however now having irregular bleeding. Otherwise happy with nexplanon, needs removal/replacement in June. She has not noticed any changes or masses in her breasts. No family hx of cancer SOLOMON SALDAÑA MD [address], [place], [address], [facility] 05/05/2024 11:47:38 06/16/2024 text/html Patient presents for Nexplanon removal and reinsertion. No issues with current nexplanon. SOLOMON SALDAÑA MD [address], [place], [address], [facility] 06/19/2024 01:06:18 OBGyn Episode Ob Episode Information Episode Created Date Number of Fetuses Patient Bloodtype Patient rh Status Prepregnancy Weight lbs Domestic Partner Domestic Partner Phone Father Name Charter Coach Driver Status 01/11/20 22 1 CLOSED Fetus Data First Name Last Name Admitted to NICU Weight (g) Sex Living Outcome Pediatric Complications Fetus ID Race Codes Race Delivery Type Full Term [id number] Vaginal Delivery Giovanny Calculation Initial Giovanny Date Initial Exam [...] Domestic Partner Domestic Partner Phone Father Name Charter Coach Driver Status 01/11/20 22 1 CLOSED Fetus Data First Name Last Name Admitted to NICU Weight (g) Sex Living Outcome Pediatric Complications Fetus ID Race Codes Race Delivery Type Full Term [id number] Vaginal Delivery Giovanny Calculation Initial Giovanny Date Initial Exam [...] Complications Tubal Sterilization Discharge Date Comments 0 Discharge Information Feeding Method Contraceptive Method Maternal HG B and HCT Levels
--- OUTSIDE RECORDS SUMMARY | 2024-09-12 04:54 | XMS_ITS | Clinical Summary ---
Author Organization [facility] [address] Address [address] [place] [address] Phone Care Team Providers Care Combatant Diver Qualified Name Role Phone Tamika Abraham NP Primary Care Provider Allergies No known active allergies Medications No known medications Active Problems Problem Noted Date Diagnosed Date Lactose intolerance 08/07/2012 Overview (11/22/2016): Lactose intolerance Scoliosis 08/07/2012 Overview (11/22/2016): Scoliosis Medical History Medical History Date Comments Anxiety Paxil Family History Medical History Relation Name Comments Colon cancer Maternal Grandmother Cancer, colon; Hypertension Mother Hypertension; Other Other No family histo ry of breast cancer; Colon cancer Paternal Grandmother Cancer, colon; Relation Name Status Comments Maternal Grandmother Mother Other Paternal Grandmother Social History Tobacco Use Types Packs/Day Years Used Date Smoking Tobacco: Never Smokeless Tobacco: Never Alcohol Use Standard Drinks/Week Comments Yes 0 (1 standard drink = 0.6 oz pur e alcohol) Personal Safety Answer Date Recorded Getting School Help Needed Not on file 11/03 Comments No Sex and Gender Information Value Date Recorded Sex Assigned at Not on file 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 Gender Identity Not on file Sexual Orientation Not on file Obstetrics History Last Filed Vital Signs Vital Sign Reading Time Taken Comments Blood Pressure 130/82 12/18/2018 1:22 PM CDT Pulse 70 03/11/2015 10:37 AM CDT Temperature - - Respiratory Rate - - Oxygen Saturation 100% 03/11/2015 10:37 AM CDT Inhaled Oxygen Concentration - - Weight 73.5 kg (162 lb) 12/18/2018 1:22 PM CDT Height 157.5 cm (5' 2 ) 11/25/2018 8:37 AM CDT Body Mass Index 29.63 11/25/2018 8:37 AM CDT Plan of Treatment Not on file Insurance [facility] CHOICE PLUS [facility] HMO/PPO Address: [place] [address] Care Teams Combatant Diver Qualified Relationship Specialty Start Date End Date Tamika Abraham NP [address] [place] [address] PCP - General Nurse Practitioner 07/17/18
--- OUTSIDE RECORDS SUMMARY | 2024-09-12 04:54 | XMS_ITS | Referral Summary ---
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
--- OUTSIDE RECORDS SUMMARY | 2024-09-12 05:27 | XMS_ITS | Referral Summary ---
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
--- OUTSIDE RECORDS SUMMARY | 2024-09-12 05:27 | XMS_ITS | Referral Summary ---
Author Organization [facility] Address [address] [place] [address] Care Team Providers Care Personal Property Assessor Name Role Phone Tamika Abraham MAGDALENA-BEHAVIOR SUPPORT SPECIALIST Primary Care Provider [phone]- [phone] Source Comments [facility],non-owned Affiliates and Associated Physician Practices is amultiple site organization consisting of ambulatory clinics and hospital sitesin [place], [place], [place] and [place]. This disclosure is being madepursuant to the Care Everywhere program and may not contain all information available regarding this patient. Last updated 18.[facility] Allergies Active Allergy Reactions Criticality Noted Date [...] of Treatment Not on file Care Teams Personal Property Assessor Relationship Specialty Start Date End Date Tamika Abraham APRN-YANIQUE [address] [place] [id number] PCP - General 05/06/21
--- OUTSIDE RECORDS SUMMARY | 2024-09-12 05:27 | XMS_ITS | Clinical Summary ---
Author Organization [facility] Address [address] [place] [address] Care Team Providers Care Factory Hand Name Role Phone Tamika Abraham MAGDALENA-PILATES COORDINATOR Primary Care Provider [phone]- [phone] Source Comments [facility],non-owned Affiliates and Associated Physician Practices is amultiple site organization consisting of ambulatory clinics and hospital sitesin [place], [place], [place] and [place]. This disclosure is being madepursuant to the Care Everywhere program and may not contain all information available regarding this patient. Last updated 18.[facility] Allergies Active Allergy Reactions Criticality Noted Date [...] age to complete this topic Care Teams Factory Hand Relationship Specialty Start Date End Date Tamika Abraham APRN-YANIQUE [address] [place] [address] PCP - General 05/06/21
--- OUTSIDE RECORDS SUMMARY | 2024-09-12 05:27 | XMS_ITS | Clinical Summary ---
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
--- OUTSIDE RECORDS SUMMARY | 2024-09-12 05:27 | XMS_ITS | Patient Health Summary ---
Author Organization [email or web address] Address [address] [place] [address] Care Team Providers Care Operator Supply Name Role Phone Tamika Abraham MAGDALENA-CEMENTER Primary Care Provider +1- [phone] Note from [facility],non-owned Affiliates and Associated Physician Practices is amultiple site organization consisting of ambulatory clinics and hospital sitesin [place], [place], [place] and [place]. This disclosure is being madepursuant to the Care Everywhere program and may not contain all information available regarding this patient. Last updated 18.[email or web address] Allergies * Milk-Related Compounds(Unknown) Active Problems Problem [...] trimester (HCC), Encounter for anatomic survey ([facility]) * SONOGRAM - COMPLETE(Performed 12/07/2020) Performed for Encounter for anatomic survey ([facility]), AMA (advanced maternal age) multigravida 35+, second trimester ([facility]) Results * BIOPHYSICAL PROFILE W NST (04/12/2021 8:57 AM CDT) Anatomical Region Laterality Modality Other 04/12/2021 8:57 AM CDT Narrative 04/12/2021 6:56 PM CDT ? [facility] Maternal Medicine ? Maternal & Care Center ?PHONE: ??FAX: Pat. Name: ?CORI ROYAL. No: ?[id number] Study Date: ?? 04/12/2021 ??8:57am , Age: ? 1985, 35 Pregnancies: ?? 2, Para 1 Height: ? 62 in Weight: ? 162 lb LMP: ?07/27/2020 GA by LMP: ?37w0d GA by Base: ?? 37w0d ?? ROSAMARIA: 05/03/2021 GA Selected: ??37w0d (From [facility]) ROSAMARIA: ?05/03/2021 Referring MD: Terri Gallardo MD Hotel Director: ??Cuca Loaiza RDMS CPT4: ? 48745 BMI: ?29.63 Hist/Ind: ? Size > dates [...] CDT Narrative 04/04/2021 9:08 AM CDT ? [facility] Maternal Medicine ? Maternal & Care Center ?PHONE: ??FAX: Pat. Name: ?CORI ROYAL. No: ?[id number] Study Date: ?? 04/04/2021 ??7:36am , Age: ? 1985, 35 Pregnancies: ?? 2, Para 1 Height: ? 62 in Weight: ? 162 lb LMP: ?07/27/2020 GA by LMP: ?35w6d GA by Base: ?? 35w6d ?? ROSAMARIA: 05/03/2021 GA by US: ? 35w4d ?? ROSAMARIA: 05/05/2021 GA Selected: ??35w6d (LMP) ROSAMARIA: ?05/03/2021 Referring MD: Terri Gallardo MD Hotel Director: ??Jackie Martines, DONTAE, RDCS CPT4: ? 93613,02239 BMI: ?29.63 Hist/Ind: ? Size > dates ?AMA-LR NIPT MEASUREMENTS & AGE ? GROWTH EVALUATION Measurement ??GA ? Range ? Srce %for GA Ratios ----- ---- ------- BPD ??8.9 cm 35w6d ([id number]) Hadl BPD 57% FL/BPD 0.77 (0.71 - 0.87) HC ??31.9 cm 36w0d (79l9a-52y1u) Hadl HC ??21% FL/AC ??0.20 (0.20 - 0.24* AC ??34.2 cm 38w1d (96o1m-72z3u) Hadl AC ??97% HC/AC ??0.93 (0.93 - 1.12) FL ?? 6.8 cm 35w1d (18s6t-82y6m) Hadl FL ??24% CI ? 0.80 (0.70 - 0.86) HL ?? 6.1 cm 35w1d (49h0b-77m0e) [place] HL ??37% GA for sonogram 35w4d (79v1w-09v7v) ?? Weight Estimate: based on (BPD,HC,AC,FL) [place] [...] Terri Gallardo MD M ORDERABLES Care Teams Operator Supply Relationship Specialty Start Date End Date Tamika Abraham APRN-CEMENTER [address] [place] [address] PCP - General 05/06/21
== END 2024-09-11 19:20 | disposition home or self-care (01) ==
PROVIDERS: Registered Nurse; Emergency Provider Emergency Medicine; PCP Nurse Practitioner Family
DX: N39.0 Urinary tract infection, site not specified (principal); R19.7 Diarrhea, unspecified; R10.9 Unspecified abdominal pain; Z11.59 Encounter for screening for other viral diseases
CPT/HCPCS: 36415; 74177; 80053; 80307; 81001; 81025; 83690; 85025; 87637; 96361; 96374; 96375; 99284; J1885; J2405; J7030; Q9967